=== PATIENT | female | born 1945 | race Caucasian/White ===

== ENCOUNTER 2022-07-21 21:12 | Inpatient (IN) | payer MEDICARE, MEDICAID, SELFPAY ==
--- NOTE | 2022-07-21 08:17 | ECG_ITS ---
APPROVED REPORT Exam: Resting ECG HR:115 bpm ECG Measurements Heart Rate 115 AXES QRSd 78 QRS -22 QT 298 T 75 QTc 366 Conclusion ATRIAL FIBRILLATION WITH RAPID VENTRICULAR RESPONSE LOW QRS VOLTAGE IN PRECORDIAL LEADS [QRS DEFLECTION < 1.0 mV IN CHEST LEADS] POSSIBLE ANTERIOR MYOCARDIAL INFARCTION , PROBABLY OLD [30 ms Q WAVE IN V3/V4, OR R < 0.2 mV IN V4] ABNORMAL RHYTHM ECG UNCONFIRMED REPORT Electronically signed by : Carlos Landin MD 07/23/2022 21:18:01
[2022-07-21 21:15] VITALS: BMI 27.9
--- NOTE | 2022-07-21 21:43 | XR_ITS ---
PROCEDURE INFORMATION: Exam: XR Chest Exam date and time: 07/21/2022 9:45 PM Age: 76 years old Clinical indication: Shortness of breath; Additional info: Shortness of air, chest pain TECHNIQUE: Imaging protocol: Radiologic exam of the chest. Views: 1 view. COMPARISON: No relevant prior studies available. FINDINGS: Tubes, catheters and devices: Multiple surgical clips project over the right chest. Central line port catheter tip projects over the cavoatrial junction. Lungs: Chronic appearing interstitial lung markings. No acute airspace consolidation. Pleural spaces: Unremarkable. No pleural effusion. No pneumothorax. Heart/Mediastinum: Mild cardiac enlargement. Retrocardiac hiatal hernia. Vasculature: Atherosclerotic calcification of a mildly tortuous thoracic aorta. Bones/joints: Unremarkable. IMPRESSION: 1. Cardiomegaly. 2. Hiatal hernia. 3. No acute airspace process.
[2022-07-21 22:00] VITALS: BP 113/67; PULSE 112; RESP 38; TEMP 35.9; O2SAT 94
--- NOTE | 2022-07-21 22:11 | PC.NURSE ---
admitted pt to [id number] to bedside assessing pt and placing orders, started pt on amiodarone 0.5mg/min per order, admission being completed, labs being completed including covid swab, pt on 6LNC with oxygen sats 93-94% with labored breathing and tachypnea, pt is a DNR pt signed form and placed in chart, pt has skin tear right elbow placed gauze and microban on and pt has wound on right lower extremity present on arrival, permission to take picture obtained, picture taken, placed telfa pad and wrapped with kerlex
--- NOTE | 2022-07-21 22:21 | EXP.HP ---
History of Present Illness *Admission Date: 07/21/22 *Reason for visit:: Shortness of air, Chest tightness *History of present illness: Ms. Maty Manjarrez is a 76-year-old female with a reported history of Chronic Atrial Fibrillation on chronic anticoagulation and rate controlling medication, COPD on chronic home oxygen, Diabetes and CAD, post PCI. She presents from [facility] where she was [facility] due to worsening shortness of air and chest tightness over a 3-day time period. The patient was seen on presentation to our facility, she reports that she takes Sotalol and Cardizem for her Atrial Fibrillation, she reports that due to low blood pressure that it was held at the Prison. She reports feelings of heart palpitations, shortness of air and chest tightness over the next three day time period, that worsened so she was sent to the ER for evaluation. In the ER at the outside facility, EKG showed Atrial Fibrillation with rates in the 145-185 range. She was given Loading doses of Cardizem and Amiodarone. She was sent to our facility for Cardiology evaluation. Upon arrival at our facility heart rate was in the 100 range. She was continued on maintenace dose of Amiodarone and her DOAC was continued. She has significant bilateral lower extremity edema and a ulceration on the right lower extremity. The patient will be admitted with initial impression: Atrial Fibrillation with RVR and Chest pain. Cardiology will be consulted to see the patient. The plan of care was discussed with the patient on admission. She verbalized understanding and agreement with the plan of care. [facility] Medical History (Updated 07/22/22 @ 10:52 by Diana Douglas APRN) Acute systolic CHF (congestive heart failure), NYHA class 3 Angina pectoris Atrial fibrillation Breast cancer CAD (coronary artery disease) Cardiomyopathy COPD (chronic obstructive pulmonary disease) COPD (chronic obstructive pulmonary disease) Diabetes mellitus FH: cholecystectomy Hyperlipidemia Hypertension Shortness of Breath Surgical History H/O heart artery stent H/O right mastectomy History of cholecystectomy Family History Other Heart attack Stroke Social History Smoking Status: Former smoker alcohol intake: never current occupational status: retired Travel in the last 8 weeks: None adopted: No household members: none lives independently: Yes Review of Systems Review of Systems Review of systems:: pertinent systems reviewed and negative unless documented below Constitutional Constitutional: Reports fatigue and Reports lethargy Eyes Eyes: Reports system reviewed and no additional complaints, except as documented ENT Ears, Nose, Mouth, and Throat: Reports system reviewed and no additional complaints, except as documented *Cardiovascular Cardiovascular: Reports dyspnea, Reports dyspnea on exertion, Reports irregular heart rhythm and Reports palpitations *Respiratory Respiratory: Reports dyspnea and Reports dyspnea on exertion *Gastrointestinal Gastrointestinal: Reports system reviewed and no additional complaints, except as documented *Genitourinary Genitourinary: Reports system reviewed and no additional complaints, except as documented *Musculoskeletal Musculoskeletal: Reports system reviewed and no additional complaints, except as documented Integumentary/Breasts Skin/Breast: Reports skin swelling and Reports wounds *Neurologic Neurologic: Reports system reviewed and no additional complaints, except as documented Psychiatric Psychiatric: Reports system reviewed and no additional complaints, except as documented Endocrine Endocrine: Reports fatigue and Reports palpitations Allergic/Immunologic Allergic/Immunologic: Reports system reviewed and no additional complain
[2022-07-21 22:46] LABS: Coronavirus 19, PCR Not Detected (NotDetected); Influenza A, PCR Not Detected (NotDetected); Influenza B, PCR Not Detected (NotDetected)
--- NOTE | 2022-07-21 22:47 | PC.NURSE ---
pt states has taken all meds at outside facility that needs for the night; pt states has allergies to pcn's, 90% of pain medications (but doesn't know which ones), warfarin, and the pneumonia vaccine; notified ROSE Ocampo home meds need to be placed in computer and then can reconcile them and that pt has allergies listed above
[2022-07-21 22:48] LABS: Basophils % 0.2 % (0.1-2.0); Eosinophils % 0.1 % (0.1-12.0); Hematocrit 29.9 % (37.0-47.0); Hemoglobin 9.3 g/dL (12.2-16.2); Lymphocytes # 0.3 K/mm3 (0.7-4.5); Lymphocytes % 3.9 % (10-50); Mean Corpuscular HGB Conc 30.9 g/dL (31.8-35.4); Mean Corpuscular Hemoglobin 29.6 pg (27.0-31.2); Mean Corpuscular Volume 95.7 fl (81-99); Mean Platelet Volume 8.7 fl (7.4-10.4); Monocytes # 0.1 K/mm3 (0.1-1.0); Monocytes % 1.3 % (1.7-9.3); Neutrophils # 8.3 K/mm3 (1.8-7.8); Neutrophils % 94.4 % (37.0-80.0); Platelet Count 640 K/mm3 (142-424); Red Blood Count 3.13 M/mm3 (4.20-5.40); Red Cell Distribution Width 17.4 % (11.5-17.5); White Blood Count 8.8 K/mm3 (4.8-10.8)
[2022-07-21 22:56] LABS: MANUAL DIFFERENTIAL MANUAL DIFFERENTIAL (MANUAL DIFF)
--- NOTE | 2022-07-21 22:57 | PC.WOUNDNOTE ---
stasis ulcer right lower extremity present on arrival
[2022-07-21 23:08] LABS: Chloride 89 mmol/L (98-107)
[2022-07-21 23:09] LABS: Potassium 5.3 mmoL/L (3.5-5.1); Sodium 134 mmol/L (136-145)
[2022-07-21 23:10] VITALS: BP 111/49; PULSE 110; RESP 16; O2SAT 100
[2022-07-21 23:11] LABS: Alanine Aminotransferase 27 U/L (12-78); Aspartate Amino Transferase 53 U/L (14-36)
[2022-07-21 23:12] LABS: Albumin Level 3.4 g/dl (3.5-5.0); Albumin/Globulin Ratio 1.1 (1.1-1.8); Alkaline Phosphatase 117 U/L (38-126); Anion Gap 17.3 mEq/L (5-15); Bilirubin,Total 0.6 mg/dl (0.2-1.3); Calcium 9.3 mg/dl (8.4-10.2); Carbon Dioxide 33 mmol/L (22.0-30.0); Globulin 3.1 g/dL (1.3-3.2); Glucose 189 mg/dl (74-100); Total Protein,Serum 6.5 g/dl (6.3-8.2)
[2022-07-21 23:14] VITALS: O2SAT 93
[2022-07-21 23:16] LABS: Blood Urea Nitrogen 18 mg/dl (7-17)
[2022-07-21 23:17] LABS: Creatinine Clearance Estimated 55 mL/min (50-200); Estimated Glomerular Filt Rate 61 ml/min (>60); GFR (African American) 73 ML/MIN (>60); Lymphocytes % 5 % (10-50); Monocytes % 1 % (2-9); Neutrophils % 94 % (42-76); Total Cells Counted 100
[2022-07-21 23:19] VITALS: O2SAT 94
[2022-07-21 23:23] LABS: Basophilic Stippling 1+
[2022-07-21 23:24] LABS: Platelet Estimate Marked Increase
[2022-07-21 23:27] VITALS: O2SAT 100
[2022-07-21 23:32] LABS: Troponin I < 0.01 ng/ml (0.00-0.034)
[2022-07-21 23:33] LABS: NT Pro Brain Natriuretic Pep. 8620 pg/mL (0-450)
[2022-07-21 23:43] LABS: Thyroid Stimulating Hormone 0.76 uIU/mL (0.465-4.68)
[2022-07-22] VITALS (33 sets, daily range): BP systolic 98–119; BP diastolic 41–67; PULSE 60–132; RESP 15–33; TEMP 36.1–36.7; O2SAT 89–100; BMI 27.9
[2022-07-22 01:55] LABS: Troponin I < 0.01 ng/ml (0.00-0.034)
[2022-07-22 06:23] LABS: POC Glucose,Bedside 168 (70-110)
[2022-07-22 06:47] LABS: Chol/HDL Ratio 2.9 (1-3.5); Cholesterol 116 mg/dl (140-200); HDL Cholesterol 40 mg/dl (40-60); Triglycerides 113 mg/dl (30-150); VLDL Cholesterol 23 mg/dL (0-40)
[2022-07-22 06:58] LABS: Direct LDL Cholesterol 40.66 mg/dL (100-129)
--- NOTE | 2022-07-22 07:47 | HMH.PTWOUND ---
Rehab Inpt Wound Evaluation Rehab IP Wound Evaluation Start: 07/22/22 07:04 Freq: ONCE Status: Active Protocol: Document 07/22/22 07:42 MEEK (Rec: 07/22/22 07:47 MEEK [id number]) Rehab PT Wound Assessment Patient Status Premedicated Prior to Dressing Change No Subjective Subjective Pt reports pain only w/ pushing on my leg - pt A&O x 3 - able to follow commands - pt reports she lives alone and was I in PLOF. Pt has popped blister on RLE Wound Right Lower Medial Pascal Wound Type Blister Wound Length (cm) 4.0 Wound Width (cm) 3.0 Wound Depth (cm) 0.1 Wound Bed Appearance Beefy Red,Dusky Red Percentage Granulated (%) 100 Wound Margins Description Indistinct Edema Type Pitting Edema Degree 4+ Query Text:1+ Trace, Barely Detectable, Rebound 15-30 seconds 2+ Moderate, Slight Indentation, Rebound 10-20 seconds 3+ Deep, Deeper Indentation, Rebound > 30 seconds 4+ Very Deep, Rebound > 60 seconds Edema Appearance Weeping,Shiny,Puffy,Stretched Looking Surrounding Tissue Temperature Warm Wound Drainage Description Serous Drainage Amount Small Drainage Odor No Odor Dressing Status Soiled Wound Topical Solution/Irrigant Antibiotic Irrigant Primary Dressing Silver Dressing Comment opticell AG Wound Secondary Dressing Type Gauze Roll/Wrap,Adhering Gauze Roll Comment kerlix/coban Wound Debridement Amount of Tissue None Removed Dressing Change Patient Tolerance Tolerated Poorly Plan/Recommendation Comment No skilled wound therapy needs at this time - pt needs significant edema reduction w/ diuresis, elevation and compression but pt refused to elevate legs and tolerate compression. Nsg to follow pt and do wound dressing as needed. Eval Complexity Eval Charge Codes 28857 - Moderate Complexity G-codes PT Current Status Other PT/OT Status PT Current Status Modifier CM-At least 80% but less than 100% impaired, limited or restricted PT Goal Status
--- NOTE | 2022-07-22 09:29 | HMH.PHAINT1 ---
Pharmacy Intervention Comments: Medication reconciliation completed via external fill history and MAR from [facility]. -Nikki Vasquez, PharmD Candidate 2022
--- NOTE | 2022-07-22 09:47 | IR_ITS ---
APPROVED REPORT Patient Location: [facility] [employer] Professional: SUKI Jarvis RT (R) PROCEDURES Right heart catheterization Left heart catheterization Left ventriculogram Selective coronary angiogram Direct-current cardioversion INDICATION Biventricular congestive heart failure, Anasarca, Atrial fibrillation Informed consent was obtained prior to the procedure. COMPLICATIONS None Estimated Blood Loss: Less than 10 ML TECHNIQUE One percent lidocaine used to anesthetize the right anterior aspect of the wrist. The right radial artery was accessed via the Seldinger technique. A 6 Austrian sheath was placed in the right radial artery. 2.5 mg of verapamil, 800 mcg of nitroglycerin, 1mg Lidocaine and 5000 U Heparin were given through the arterial sheath. The papa catheter was also used to perform left heart catheterization, left ventriculogram and selective coronary angiogram. 1% lidocaine was used anesthetize the right groin the right femoral vein was accessed via the Salinger technique and a 7 Austrian sheath was placed in the right femoral vein. Mershon-Abdirahman catheter was used to perform right heart catheterization. At the end of the cardiac catheterization 50 J of synchronized electricity was applied successfully converting patient from atrial fibrillation into sinus rhythm. Patient tolerated the procedure well was transferred to the postop putting in stable condition for sheath removal ANGIOGRAPHIC RESULTS The left main artery Normal The left anterior descending artery Has a stent in the proximal segment which is widely patent with minimal in-stent restenosis and excellent proximal distal transitioning. The remaining LAD has mild 20% nonocclusive plaque The circumflex artery Is a large dominant vessel and has mid vessel 30 to 40% stenoses. The bifurcating first obtuse marginal artery gives rise to a 1.75 mm superior branch which has an ostial concentric 80 to 90% stenosis. The right coronary artery Is nondominant and has a proximal 40 to 50% stenosis and a less than 2 mm vessel The QUIROZ ventriculogram reveals Reduced ejection fraction 45% The left ventricular end-diastolic pressure 20 mmHg Right atrial pressure 20 mmHg Right ventricular pressure 40/20 mmHg Pulmonary occlusion pressure 20 mmHg Pulmonary pressure 40/20 mmHg Right atrial saturation 64% Pulmonary artery saturation 61% Aortic saturation 97% Hemoglobin 9.3 Cardiac output 3.6 L/min IMPRESSION Coronary disease as described above with medical management being most warranted with a coronary artery disease not explaining patient's biventricular heart failure Equalization of pressures with a prominent Y descent can suggestive of constrictive pericarditis Atrial fibrillation successfully converted into sinus rhythm PLAN 1. High resolution CAT scan of the chest with specific attention looking at pericardial thickness to evaluate for constrictive pericarditis 2. Pending the results of the CAT scan it is possible patient could rather be suffering from a restrictive cardiomyopathy. Recommend CMR if pericardial thickness is not identified 3. Medical management for coronary artery disease 4. It is possible patient may be experiencing biventricular heart failure all from diastolic dysfunction now with some degree of LV dysfunction. Recommend high-dose diuretics and continue to diurese until a significant increase in creatinine has occurred or until patient's anasarca is resolved 5. Continue with Eliquis for atrial fibrillation Electronically signed by : Dawson Fishman MD 07/22/2022 12:30:54
--- NOTE | 2022-07-22 10:27 | EXP.CARD.CON ---
History of Present Illness History of Present Illness Consult date: 07/22/22 Requesting physician: Chivo Cardona Consult reason: chest pain, atrial fibrillation and shortness of breath Chief complaint: chest pain and SOB History of present illness: This is a 76-year-old white female who presented to the emergency department at [facility] with a 3-day history of chest pain and shortness of breath. The patient has known chronic atrial fibrillation on Eliquis, coronary artery disease with stenting, COPD and diabetes mellitus. The patient resides at a care home and [facility]. She states that 3 days ago she started to have chest pain and shortness of breath. The patient reports that she does not feel well. She is really unable to describe her chest pain to me but she just keeps telling me that she feels like she cannot breathe. She states that she has to sit up in the bed and chair or she is unable to breathe. She denies any fever, chills, nausea, vomiting or diarrhea. She states that she has been having orthopnea with her shortness of breath. She states that she has significant bilateral lower extremity edema. Her lower extremities are weeping fluid and she does have an ulceration to her right lower extremity that is wrapped in a dressing. The patient states that she does not feel well. She is on oxygen via nasal cannula and has refused any masks or BiPAP for oxygenation. The patient has a known history of atrial fibrillation but when she got to the emergency department at [facility] she was found to be in atrial fibrillation with RVR. Her heart rate was in the 140s to 180s. She was given a loading dose of Cardizem and amiodarone and then she was transferred here to [facility] on an amiodarone drip. She remains on the amiodarone drip this morning and is tachycardic. She states that she can feel the palpitations and fluttering of her heart as well. During my examination she is unable to tell me who her assistant hvac mechanic is and when her last cardiology work-up was. She is alert and oriented x3. [facility] Medical History (Updated 07/22/22 @ 10:52 by Diana Douglas APRN) Acute systolic CHF (congestive heart failure), NYHA class 3 Angina pectoris Atrial fibrillation Breast cancer CAD (coronary artery disease) Cardiomyopathy COPD (chronic obstructive pulmonary disease) COPD (chronic obstructive pulmonary disease) Diabetes mellitus FH: cholecystectomy Hyperlipidemia Hypertension Shortness of Breath Surgical History H/O heart artery stent H/O right mastectomy History of cholecystectomy Family History Other Heart attack Stroke Social History Smoking Status: Former smoker alcohol intake: never current occupational status: retired Travel in the last 8 weeks: None adopted: No household members: none lives independently: Yes Review of Systems Review of Systems Review of systems:: pertinent systems reviewed and negative unless documented below Constitutional Constitutional: Reports system reviewed and no additional complaints, except as documented, Reports fatigue and Reports lethargy Eyes Eyes: Reports system reviewed and no additional complaints, except as documented ENT Ears, Nose, Mouth, and Throat: Reports system reviewed and no additional complaints, except as documented *Cardiovascular Cardiovascular: Reports system reviewed and no additional complaints, except as documented, Reports as per HPI, Reports chest pain, Reports chest pain at rest, Reports chest pain with activity, Reports dyspnea, Reports dyspnea on exertion, Reports irregular heart rhythm, Reports orthopnea, Reports palpitations and Reports rapid heart rate *Respiratory Respiratory: Reports system reviewed and no additional complaints, except as documented, Reports
--- NOTE | 2022-07-22 10:37 | PC.NURSE ---
Pt to production laborer @ 1390.
[2022-07-22 11:43] LABS: CATHL Arterial O2 SAT 61.5 % (90-100); CATHL Venous O2 SAT 64.2 % (75-80)
--- NOTE | 2022-07-22 12:16 | CT_ITS ---
FINAL REPORT CLINICAL HISTORY: constrictive pericarditis COMPARISON: June 2022 FINDINGS: Axial images were obtained from the lung apex to the mid abdomen by computed tomography. Coronal reformatted images were obtained. This study was performed with techniques to keep radiation doses as low as reasonably achievable, (ALARA). Individualized dose reduction techniques using automated exposure control or adjustment of mA and/or kV according to the patient's size were employed. A left anterior chest port terminates in the SVC. There is no axillary adenopathy. There is no hilar or mediastinal adenopathy. There is moderate vascular calcification in the aortic arch. Heart size is normal. There are small bilateral pleural effusions. Images through the upper abdomen demonstrate a benign-appearing cyst in the left kidney measuring 5.3 x 4.0 cm. The gallbladder is absent. There is irregular density within fat medial to the spleen seen on image 62 of series 2 that was noted on the prior exam and is of unclear etiology. The pericardium measures less than 2 mm and is not appear visually thickened. There is a 1.0 x 0.7 cm nodule in the posterior right upper lobe on image 22 of series 2. There is a 4 mm nodule in the anterior periphery of the right upper lobe on image 23 of series 2. There is bibasilar consolidation with overlying atelectasis. IMPRESSION: Bibasilar consolidation with overlying atelectasis and 2 right lung nodules as above. Irregular density within fat medial to the spleen of unclear etiology. Less than 2 mm pericardium does not appear thickened. Reviewed, Interpreted and Dictated by Frank Whitaker MD Transcribed by Jeffy Harkins Authenticated and [facility]
[2022-07-22 12:45] LABS: Microscopic, Urine URINE MICROSCOPIC (MICROSCOPIC)
[2022-07-22 12:56] LABS: Appearance,Urine CLEAR (Clear); Blood, Urine TRACE-I (Negative); Color,Urine YELLOW (Yellow); Glucose,Urine (UA) Negative (Negative); Ketones,Urine TRACE (Negative); Leukocyte Esterase,Urine TRACE (Negative); Nitrate,Urine Negative (Negative); Protein,Urine Negative (Negative); Specific Gravity, Urine 1.025 (1.005-1.030)
[2022-07-22 13:13] LABS: Bacteria,Urine Trace /lpf; Bilirubin,Urine 1+ (Negative)
--- NOTE | 2022-07-22 14:21 | CARE MANAGER ---
Patient is currently a patient at [facility] in [place] ([phone]) receiving rehab and is SNF status. They do anticipate being able to take her back when she is ready and asked for an update in the next day or 2. MURALI Yang
--- NOTE | 2022-07-22 14:55 | EXP.ACUTE.PN ---
Subjective *Date: 07/22/22 *Time: 18:34 Medical Exam Vital signs and Labs for Last 24 Hours: Vital Signs Temp Pulse Pulse Resp BP Pulse Ox 07/22/22 13:30 65 20 108/57 L 100 07/22/22 13:15 78 18 119/43 L 100 07/22/22 12:45 68 20 104/48 L 100 07/22/22 12:30 68 20 99/53 L 100 07/22/22 12:15 72 22 103/43 L 100 07/22/22 12:00 82 20 103/47 L 100 07/22/22 11:45 84 20 112/61 100 07/22/22 11:40 86 23 100/60 L 100 07/22/22 11:35 84 19 109/61 L 100 07/22/22 08:00 110 H 07/22/22 11:32 84 07/22/22 11:30 85 22 106/62 L 99 07/22/22 11:13 18 07/22/22 10:00 132 H 28 H 115/55 L 96 07/22/22 08:00 117 H 26 H 113/59 L 100 07/22/22 08:00 97.6 F 07/22/22 04:00 100 07/22/22 06:00 123 H 31 H 117/41 L 100 07/22/22 04:00 100 H 07/22/22 04:00 96.9 F L 07/22/22 04:00 104 H 23 108/55 L 100 07/22/22 02:00 113 H 15 98/50 L 100 07/22/22 00:00 108 H 07/22/22 00:00 121 H 07/22/22 00:00 105 H 33 H 109/45 L 100 07/22/22 00:47 97.9 F 07/21/22 23:19 94 L 07/21/22 23:10 110 H 16 111/49 L 100 07/21/22 23:27 100 07/21/22 23:14 93 L 07/21/22 22:00 96.6 F L 112 H 38 H 113/67 94 L Intake and Output 07/21/22 07/22/22 07/22/22 23:59 07:59 15:59 Output Total 0 / 0 Balance 0 / 0 Output: Output, Urine Amount 0 / 0 Other: Number of Unmeasured Voids 0 Weight 73.936 kg 74.2 kg Patient Weight 07/22/22 23:59 Weight 74.2 kg Laboratory Results - last 24 hr 07/21/22 22:14: SARS-CoV-2 (PCR) Not detected, Influenza A Untype (PCR) Not detected, Influenza Type B (PCR) Not detected 07/21/22 22:29: WBC 8.8, RBC 3.13 L, Hgb 9.3 L, Hct 29.9 L, MCV 95.7, MCH 29.6, MCHC 30.9 L, RDW 17.4, Plt Count 640 H, MPV 8.7, Neut % (Auto) 94.4 H, Lymph % (Auto) 3.9 L, Hayes % (Auto) 1.3 L, Eos % (Auto) 0.1, Baso % (Auto) 0.2, Neut # (Auto) 8.3 H, Lymph # (Auto) 0.3 L, Hayes # (Auto) 0.1, Eos # (Auto) 0.0, Baso # (Auto) 0.0, Total Counted 100, Neutrophils % (Manual) 94 H, Lymphocytes % (Manual) 5 L, Monocytes % (Manual) 1 L, Platelet Estimate Marked increase, Basophilic Stippling 1+ 07/21/22 22:29: Sodium 134 L, Potassium 5.3 H, Chloride 89 L, Carbon Dioxide 33 H, Anion Gap 17.3 H, BUN 18 H, Creatinine 0.90, Estimated Creat Clear 55, Estimated GFR 61, Est GFR ( Amer) 73, Glucose 189 H, Calcium 9.3, Total Bilirubin 0.6, AST 53 H, ALT 27, Alkaline Phosphatase 117, Troponin I < 0.01, Total Protein 6.5, Albumin 3.4 L, Globulin 3.1, Albumin/Globulin Ratio 1.1, TSH 0.76 07/21/22 22:29: NT-Pro-B Natriuret Pep 8620 H 07/22/22 01:25: Troponin I < 0.01 07/22/22 05:46: Triglycerides 113, Cholesterol 116 L, LDL Cholesterol Direct 40.66 L, VLDL Cholesterol 23, HDL Cholesterol 40, Cholesterol/HDL Ratio 2.9 07/22/22 06:14: POC Glucose 168 H 07/22/22 11:15: ABG O2 Sat (Measured) 61.5 L, POC VBG O2 Sat (Betsy) 64.2 L 07/22/22 11:52: Urine Color Yellow, Urine Appearance Clear, Urine pH 6.0, Ur Specific [place] 1.025, Urine Protein Negative, Urine Glucose (UA) Negative, Urine Ketones Trace, Urine Blood Trace-i, Urine Nitrate Negative, Urine Bilirubin 1+ A, Urine Urobilinogen 1.0, Ur Leukocyte Esterase Trace, Urine RBC 5-10, Urine WBC 10-20, Ur Squamous Epith Cells None, Urine Bacteria Trace I & O for Labs for Last 24 Hours: Intake & Output 07/19/22 07/20/22 07/21/22 07/22/22 23:59 23:59 23:59 23:59 Output Total 0 / 0 Balance 0 / 0 Weight 73.936 kg 74.2 kg Constitutional: Present mild distress, chronically ill appearing and agitated Head: Present atraumatic and normocephalic ENT: Present normal exam and mucous membranes moist Neck: Present normal inspection Comment:: bandage over right IJ at site of Right heart cath, CDI Respiratory: Present accessory muscle use, wheezes, crackles and diminished air movement; Absent rhonchi or stridor Cardiac: Present Reg Rate an
[2022-07-22 16:26] LABS: POC Glucose,Bedside 163 (70-110)
[2022-07-22 16:26] LABS: POC Glucose,Bedside 179 (70-110)
--- NOTE | 2022-07-22 18:21 | PC.NURSE ---
Dr. Cardona here this afternoon to round on pt and updated on pt's condition. VSS at this time. Pt placed on simple mask @ 4 L NC currently and sats 98%. Light cath in place and draining scant yellow urine at this time. Ami gtt off at 1630. Dsg in place to r radial cath site, r jugular and r groin. Pt is a/o x 4. Pt is very weak and states help, and then just says breathe . Pt's rr are labored. Pt has been drowsy/sedated since returning from parking lot laborer. Does respond verbally when spoken to. Have notified RT for xopanex nebs ordered per Dr. Cardona.
[2022-07-22 19:16] LABS: Chloride 93 mmol/L (98-107); Sodium 135 mmol/L (136-145)
[2022-07-22 19:19] LABS: Blood Urea Nitrogen 25 mg/dl (7-17); Creatinine Clearance Estimated 50 mL/min (50-200); Estimated Glomerular Filt Rate 48 ml/min (>60); GFR (African American) 58 ML/MIN (>60)
[2022-07-22 19:20] LABS: Anion Gap 18.1 mEq/L (5-15); Carbon Dioxide 31 mmol/L (22.0-30.0); Glucose 144 mg/dl (74-100)
--- NOTE | 2022-07-22 20:09 | PC.WOUNDNOTE ---
1x1 stage 2 buttock r side
[2022-07-22 20:16] LABS: Potassium 7.1 mmoL/L (3.5-5.1)
--- NOTE | 2022-07-22 21:16 | ECG_ITS ---
APPROVED REPORT Exam: Resting ECG HR:85 bpm ECG Measurements Heart Rate 85 AXES IL 199 P 92 QRSd 96 QRS -6 QT 357 T 50 QTc 399 Conclusion SINUS RHYTHM LOW QRS VOLTAGE IN PRECORDIAL LEADS [QRS DEFLECTION < 1.0 mV IN CHEST LEADS] INCOMPLETE RIGHT BUNDLE BRANCH BLOCK [90+ ms QRS DURATION, TERMINAL R IN V1/V2, 40+ ms S IN I/aVL/V4/V5/V6] POSSIBLE ANTERIOR MYOCARDIAL INFARCTION , PROBABLY OLD [30 ms Q WAVE IN V3/V4, OR R < 0.2 mV IN V4] BORDERLINE ECG UNCONFIRMED REPORT Electronically signed by : Carlos Landin MD 07/23/2022 21:16:05
[2022-07-22 22:04] LABS: POC Glucose,Bedside 165 (70-110)
[2022-07-22 23:12] LABS: POC Glucose,Bedside 112 (70-110)
[2022-07-23] VITALS (22 sets, daily range): BP systolic 90–126; BP diastolic 39–54; PULSE 70–95; RESP 16–20; TEMP 36.4–37; O2SAT 90–100; BMI 28.9
--- NOTE | 2022-07-23 00:15 | PC.NURSE ---
Orders Heparin and Lasix clarified by Damaris MARTIN.
[2022-07-23 01:14] LABS: Chloride 91 mmol/L (98-107); Potassium 5.9 mmoL/L (3.5-5.1); Sodium 134 mmol/L (136-145)
[2022-07-23 01:17] LABS: Anion Gap 13.9 mEq/L (5-15); Blood Urea Nitrogen 25 mg/dl (7-17); Carbon Dioxide 35 mmol/L (22.0-30.0); Creatinine Clearance Estimated 42 mL/min (50-200); Estimated Glomerular Filt Rate 40 ml/min (>60); GFR (African American) 48 ML/MIN (>60)
[2022-07-23 01:18] LABS: Calcium 8.7 mg/dl (8.4-10.2); Glucose 108 mg/dl (74-100)
[2022-07-23 01:29] LABS: Chloride 89 mmol/L (98-107); Potassium 5.6 mmoL/L (3.5-5.1); Sodium 133 mmol/L (136-145)
[2022-07-23 01:32] LABS: Anion Gap 11.6 mEq/L (5-15); Blood Urea Nitrogen 24 mg/dl (7-17); Calcium 8.6 mg/dl (8.4-10.2); Carbon Dioxide 38 mmol/L (22.0-30.0); Creatinine Clearance Estimated 42 mL/min (50-200); Estimated Glomerular Filt Rate 40 ml/min (>60); GFR (African American) 48 ML/MIN (>60); Glucose 116 mg/dl (74-100)
--- NOTE | 2022-07-23 04:58 | PC.NURSE ---
Pt responds with moaning or states help occasionally. When asked if she feels any better, pt states, No . BP is soft this AM. Pt has remained on NRB or venti to keep O2 sats above 90%. She is currently on 50% venti. Lungs have coarse crackles in RUL. Lasix administered this shift. Pt has only had 100 ml total urine output. D5W is currently infusing @ 50 ml/hr. Medications and orders verified with Damaris MARTIN and [facility]. Crirical labs reported to Damaris MARTIN this shift.
[2022-07-23 05:21] LABS: POC Glucose,Bedside 164 (70-110)
[2022-07-23 06:31] LABS: Alanine Aminotransferase 306 U/L (12-78); Albumin Level 3.1 g/dl (3.5-5.0); Albumin/Globulin Ratio 1.1 (1.1-1.8); Alkaline Phosphatase 104 U/L (38-126); Anion Gap 14.6 mEq/L (5-15); Bilirubin,Total 0.7 mg/dl (0.2-1.3); Blood Urea Nitrogen 29 mg/dl (7-17); Calcium 8.7 mg/dl (8.4-10.2); Carbon Dioxide 34 mmol/L (22.0-30.0); Chloride 90 mmol/L (98-107); Creatinine Clearance Estimated 38 mL/min (50-200); Estimated Glomerular Filt Rate 34 ml/min (>60); GFR (African American) 41 ML/MIN (>60); Globulin 2.9 g/dL (1.3-3.2); Glucose 153 mg/dl (74-100); Magnesium 1.3 mg/dl (1.6-2.3); Sodium 132 mmol/L (136-145)
[2022-07-23 06:35] LABS: Basophils % 0.3 % (0.1-2.0); Eosinophils % 0.1 % (0.1-12.0); Hemoglobin 8.7 g/dL (12.2-16.2); Lymphocytes # 0.4 K/mm3 (0.7-4.5); Lymphocytes % 3.5 % (10-50); Mean Corpuscular HGB Conc 29.1 g/dL (31.8-35.4); Mean Corpuscular Hemoglobin 28.9 pg (27.0-31.2); Mean Corpuscular Volume 99.5 fl (81-99); Mean Platelet Volume 9.3 fl (7.4-10.4); Monocytes # 0.5 K/mm3 (0.1-1.0); Monocytes % 4.6 % (1.7-9.3); Neutrophils % 91.6 % (37.0-80.0); Platelet Count 507 K/mm3 (142-424); Red Blood Count 3.02 M/mm3 (4.20-5.40); Red Cell Distribution Width 18.1 % (11.5-17.5); White Blood Count 10.9 K/mm3 (4.8-10.8)
[2022-07-23 06:39] LABS: MANUAL DIFFERENTIAL MANUAL DIFFERENTIAL (MANUAL DIFF)
[2022-07-23 07:05] LABS: Aspartate Amino Transferase 791 U/L (14-36)
[2022-07-23 07:10] LABS: Potassium 6.6 mmoL/L (3.5-5.1)
--- NOTE | 2022-07-23 07:29 | PC.NURSE ---
critical lab value potassium given to MD Cardona.
[2022-07-23 08:08] LABS: Lymphocytes % 5 % (10-50); Monocytes % 6 % (2-9); Neutrophils % 88 % (42-76); Total Cells Counted 100
[2022-07-23 08:09] LABS: Platelet Estimate Moderate Increase; RBC Morphology Normal
[2022-07-23 08:16] LABS: Hemoglobin A1C 6.4 % (4.0-6.0)
--- NOTE | 2022-07-23 10:34 | EXP.CARD.PN ---
Subjective Subjective Date: 07/23/22 Time: 08:30 Principal diagnosis: chf Interval history: This is a 76-year-old white female who [facility] with a 3-day history of chest pain and shortness of breath. The patient was found to have an acute exacerbation of diastolic congestive heart failure and she was admitted to the hospital at [facility]. The patient was also found to be in atrial fibrillation with RVR. She was initially loaded with Cardizem and amiodarone and then continued on an amiodarone drip. She was cardioverted back to sinus rhythm yesterday and her amiodarone drip has been stopped. 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 She underwent a CT scan yesterday which showed that her pericardial thickness was normal. She did get IV diuretics overnight. This morning she is still complaining of shortness of breath. She states that it is a little bit better than yesterday but she just does not feel well. She states that she is very tired and lethargic. She denies any chest pain or pressure. She states that she has chronic lower extremity edema. Her edema does appear to be improved somewhat from yesterday. She states that she does not feel good. She denies any fever, chills, nausea, vomiting or diarrhea. She states that her shortness of breath is associated with orthopnea. Exam Data for Last 24 hours Vital signs and Labs for Last 24 Hours: Temp Pulse Resp BP Pulse Ox FiO2 97.6 F 83 18 99/51 L 97 50 07/23/22 08:00 07/23/22 10:18 07/23/22 10:00 07/23/22 10:00 07/23/22 10:00 07/23/22 10:00 Laboratory Results - last 24 hr 07/22/22 11:15: ABG O2 Sat (Measured) 61.5 L, POC VBG O2 Sat (Betsy) 64.2 L 07/22/22 11:52: Urine Color Yellow, Urine Appearance Clear, Urine pH 6.0, Ur Specific [place] 1.025, Urine Protein Negative, Urine Glucose (UA) Negative, Urine Ketones Trace, Urine Blood Trace-i, Urine Nitrate Negative, Urine Bilirubin 1+ A, Urine Urobilinogen 1.0, Ur Leukocyte Esterase Trace, Urine RBC 5-10, Urine WBC 10-20, Ur Squamous Epith Cells None, Urine Bacteria Trace 07/22/22 12:07: POC Glucose 163 H 07/22/22 15:43: POC Glucose 179 H 07/22/22 18:45: Sodium 135 L, Potassium 7.1 H* D, Chloride 93 L, Carbon Dioxide 31 H, Anion Gap 18.1 H, BUN 25 H D, Creatinine 1.10 H D, Estimated Creat Clear 50, Estimated GFR 48 L, Est GFR ( Amer) 58 L D, Glucose 144 H D, Calcium 9.0 07/22/22 21:09: POC Glucose 165 H 07/22/22 23:06: POC Glucose 112 H 07/23/22 00:25: Sodium 134 L, Potassium 5.9 H, Chloride 91 L, Carbon Dioxide 35 H, Anion Gap 13.9, BUN 25 H, Creatinine 1.30 H, Estimated Creat Clear 42, Estimated GFR 40 L, Est GFR ( Amer) 48 L, Glucose 108 H D, Calcium 8.7 07/23/22 01:15: Sodium 133 L, Potassium 5.6 H, Chloride 89 L, Carbon Dioxide 38 H, Anion Gap 11.6, BUN 24 H, Creatinine 1.30 H, Estimated Creat Clear 42, Estimated GFR 40 L, Est GFR ( Amer) 48 L, Glucose 116 H, Calcium 8.6 07/23/22 05:09: POC Glucose 164 H 07/23/22 05:50: WBC 10.9 H, RBC 3.02 L, Hgb 8.7 L, Hct 30.0 L, MCV 99.5 H, MCH 28.9, MCHC 29.1 L, RDW 18.1 H, Plt Count 507 H, MPV 9.3, Neut % (Auto) 91.6 H, Lymph % (Auto) 3.5 L, Josephine % (Auto) 4.6, Eos % (Auto) 0.1, Baso % (Auto) 0.3, Neut # (Auto) 10.0 H, Lymph # (Auto) 0.4 L, Josephine # (Auto) 0.5, Eos # (Auto) 0.0, Baso # (Auto) 0.0, Total Counted 100, Neutrophils % (Manual) 88 H, Lymphocytes % (Manual) 5 L, Monocytes % (Manual) 6, Metamyelocytes % 1.0, Platelet Estimate Moderate increase, RBC Morphology Normal 07/23/22 05:50: Sodium 132 L, Potassium 6.6 H*, Chloride 90 L, Carbon Dioxide 34 H, Anion Gap 14.6, BUN 29 H, Creatinine 1.50 H, Estimated Creat Clear 38, Estimated GFR 34 L, Est GFR ( Amer) 41 L, Glucose 153 H D, Calciu
[2022-07-23 12:29] LABS: POC Glucose,Bedside 147 (70-110)
--- NOTE | 2022-07-23 13:51 | EXP.ACUTE.PN ---
Subjective *Date: 07/23/22 *Time: 13:51 Interval history: Patient appears quite fatigued this morning. On 50% Ventimask on rounds. Poor urine output overnight. Noted to have improvement in edema however. On morning labs, her creatinine is elevated along with hyperkalemia noted. Treated once medically overnight for hyperkalemia. Receiving second dose of dextrose and insulin this morning. Patient denies any chest pain, nausea, vomiting. Appears in mild respiratory distress. Continues to decline BiPAP placement. Blood pressure soft but acceptable, MAP greater than 65 Medical Exam Vital signs and Labs for Last 24 Hours: Vital Signs Temp Pulse Pulse Pulse Resp BP Pulse Ox 07/23/22 12:00 88 16 98/49 L 97 07/23/22 13:28 82 07/23/22 13:28 84 07/23/22 11:35 98.2 F 07/23/22 10:18 83 07/23/22 10:18 84 07/23/22 10:00 84 18 99/51 L 97 07/23/22 08:00 99 07/23/22 08:00 92 H 20 106/46 L 98 07/23/22 08:00 97.6 F 07/23/22 04:00 80 07/23/22 05:50 80 07/23/22 05:50 84 07/23/22 05:50 90 L 07/23/22 06:00 84 20 90/43 L 96 07/23/22 04:30 79 16 95/51 L 99 07/23/22 04:00 98.6 F 78 16 92/44 L 99 07/23/22 02:00 81 17 126/43 L 99 07/23/22 00:00 77 20 101/54 L 99 07/22/22 22:00 86 16 110/50 L 89 L 07/22/22 20:00 82 18 110/54 L 99 07/23/22 00:00 70 07/22/22 20:00 80 07/22/22 20:00 98 07/23/22 00:00 98.5 F 07/22/22 20:28 95 07/22/22 19:05 84 07/22/22 19:05 84 07/22/22 19:05 97 07/22/22 19:57 98.1 F 07/22/22 18:45 81 24 110/52 L 07/22/22 16:30 100 07/22/22 18:00 79 24 111/57 L 100 07/22/22 17:45 97.8 F 78 26 H 118/67 100 07/22/22 16:00 60 07/22/22 16:45 70 24 109/55 L 100 07/22/22 15:45 65 24 98/44 L 100 07/22/22 14:45 64 20 103/45 L 97 07/22/22 14:15 66 18 113/55 L 100 FiO2 07/23/22 12:00 50 07/23/22 13:28 07/23/22 13:28 07/23/22 11:35 07/23/22 10:18 07/23/22 10:18 07/23/22 10:00 50 07/23/22 08:00 50 07/23/22 08:00 50 07/23/22 08:00 07/23/22 04:00 07/23/22 05:50 07/23/22 05:50 07/23/22 05:50 50 07/23/22 06:00 07/23/22 04:30 07/23/22 04:00 07/23/22 02:00 07/23/22 00:00 07/22/22 22:00 07/22/22 20:00 07/23/22 00:00 07/22/22 20:00 07/22/22 20:00 07/23/22 00:00 07/22/22 20:28 07/22/22 19:05 07/22/22 19:05 07/22/22 19:05 07/22/22 19:57 07/22/22 18:45 07/22/22 16:30 07/22/22 18:00 07/22/22 17:45 07/22/22 16:00 07/22/22 16:45 07/22/22 15:45 07/22/22 14:45 07/22/22 14:15 Intake and Output 07/22/22 07/23/22 07/23/22 23:59 07:59 15:59 Intake Total 343 / 343 0 / 343 Output Total 400 / 400 100 / 100 0 / 100 Balance -400 / -400 243 / 243 0 / 243 Intake: Intake, Oral Amount 0 / 0 Intake, Total IV Amount 343 / 343 Dextrose 5 % in Water 1,000 ml 343 / 343 @ 50 mls/hr IV .Q20H [facility] Rx#: [id number] Output: Output, Urine Amount 0 / 0 0 / 0 Output, Urine Amount (Catheter) 400 / 400 100 / 100 Light 400 / 400 100 / 100 Other: Number of Unmeasured Voids 0 0 0 Weight 76.856 kg 76.85 kg Patient Weight 07/23/22 23:59 Weight 76.85 kg Laboratory Results - last 24 hr 07/22/22 12:07: POC Glucose 163 H 07/22/22 15:43: POC Glucose 179 H 07/22/22 18:45: Sodium 135 L, Potassium 7.1 H* D, Chloride 93 L, Carbon Dioxide 31 H, Anion Gap 18.1 H, BUN 25 H D, Creatinine 1.10 H D, Estimated Creat Clear 50, Estimated GFR 48 L, Est GFR ( Amer) 58 L D, Glucose 144 H D, Calcium 9.0 07/22/22 21:09: POC Glucose 165 H 07/22/22 23:06: POC Glucose 112 H 07/23/22 00:25: Sodium 134 L, Potassium 5.9 H, Chloride 91 L, Carbon Dioxide 35 H, Anion Gap 13.9, BUN 25 H, Creatinine 1.30 H, Estimated Creat Clear 42, Estimate
[2022-07-23 15:33] LABS: Chloride 94 mmol/L (98-107); Sodium 135 mmol/L (136-145)
[2022-07-23 15:36] LABS: Blood Urea Nitrogen 30 mg/dl (7-17); Creatinine Clearance Estimated 38 mL/min (50-200); Estimated Glomerular Filt Rate 34 ml/min (>60); GFR (African American) 41 ML/MIN (>60)
[2022-07-23 15:37] LABS: Anion Gap 16.6 mEq/L (5-15); Calcium 8.7 mg/dl (8.4-10.2); Carbon Dioxide 31 mmol/L (22.0-30.0); Glucose 112 mg/dl (74-100)
[2022-07-23 15:39] LABS: Potassium 6.6 mmoL/L (3.5-5.1)
--- NOTE | 2022-07-23 17:58 | PC.NURSE ---
Patient resting in bed with eyes closed, remains on 50% venti mask, lung sounds diminished t/o with fine crackles, 3+ pitting edema noted to bl extremities, alert to person only, minimal urine output this shift, has been turned q2h, call light in reach with bed in lowest position.
[2022-07-23 21:05] LABS: POC Glucose,Bedside 125 (70-110)
[2022-07-23 23:09] LABS: Chloride 91 mmol/L (98-107); Potassium 5.3 mmoL/L (3.5-5.1); Sodium 132 mmol/L (136-145)
[2022-07-23 23:12] LABS: Anion Gap 12.3 mEq/L (5-15); Blood Urea Nitrogen 29 mg/dl (7-17); Carbon Dioxide 34 mmol/L (22.0-30.0); Creatinine Clearance Estimated 36 mL/min (50-200); Estimated Glomerular Filt Rate 31 ml/min (>60); GFR (African American) 38 ML/MIN (>60)
[2022-07-23 23:13] LABS: Calcium 8.2 mg/dl (8.4-10.2); Glucose 111 mg/dl (74-100)
[2022-07-24] VITALS (18 sets, daily range): BP systolic 90–128; BP diastolic 34–66; PULSE 90–142; RESP 16–33; TEMP 35.9–37.1; O2SAT 90–100; BMI 28.8
--- NOTE | 2022-07-24 04:41 | PC.NURSE ---
Pt is more alert. Has been communicating more with staff answering and asking questions. C/o generalized discomfort. Medicated per mar. Has remained on venti mask this shift with a few desats from pt removing mask. . Pt educated on importance of leaving mask on. Crackles noted to lung sánchez. 4+ edema to ble and 3+ to bue. F/C draining to bedside with dark red/brown urine. More blood noted to urine this AM. Pt has had a total of 200 ml this shift. No BM. BP remains soft. Other VSS. Pt turned and repositioned. Oral care provided. Call light at bedside.
[2022-07-24 05:31] LABS: POC Glucose,Bedside 118 (70-110)
[2022-07-24 06:21] LABS: Basophils # 0.1 K/mm3 (0-0.2); Eosinophils # 0.2 K/mm3 (0.0-0.4); Eosinophils % 1.8 % (0.1-12.0); Hematocrit 24.6 % (37.0-47.0); Hemoglobin 7.9 g/dL (12.2-16.2); Lymphocytes # 0.4 K/mm3 (0.7-4.5); Lymphocytes % 4.7 % (10-50); Mean Corpuscular HGB Conc 31.9 g/dL (31.8-35.4); Mean Corpuscular Hemoglobin 29.7 pg (27.0-31.2); Mean Corpuscular Volume 93.1 fl (81-99); Mean Platelet Volume 11.4 fl (7.4-10.4); Monocytes # 0.4 K/mm3 (0.1-1.0); Monocytes % 4.3 % (1.7-9.3); Neutrophils # 8.5 K/mm3 (1.8-7.8); Neutrophils % 89.2 % (37.0-80.0); Platelet Count 429 K/mm3 (142-424); Red Blood Count 2.65 M/mm3 (4.20-5.40); Red Cell Distribution Width 16.9 % (11.5-17.5); White Blood Count 9.6 K/mm3 (4.8-10.8)
[2022-07-24 06:24] LABS: Alanine Aminotransferase 218 U/L (12-78); Albumin Level 2.8 g/dl (3.5-5.0); Albumin/Globulin Ratio 1.1 (1.1-1.8); Alkaline Phosphatase 104 U/L (38-126); Anion Gap 16.6 mEq/L (5-15); Aspartate Amino Transferase 287 U/L (14-36); Bilirubin,Total 0.8 mg/dl (0.2-1.3); Blood Urea Nitrogen 38 mg/dl (7-17); Calcium 8.3 mg/dl (8.4-10.2); Carbon Dioxide 30 mmol/L (22.0-30.0); Chloride 94 mmol/L (98-107); Creatinine Clearance Estimated 33 mL/min (50-200); Estimated Glomerular Filt Rate 29 ml/min (>60); GFR (African American) 35 ML/MIN (>60); Globulin 2.5 g/dL (1.3-3.2); Glucose 99 mg/dl (74-100); Magnesium 1.9 mg/dl (1.6-2.3); Sodium 134 mmol/L (136-145); Total Protein,Serum 5.3 g/dl (6.3-8.2)
[2022-07-24 06:46] LABS: MANUAL DIFFERENTIAL MANUAL DIFFERENTIAL (MANUAL DIFF)
[2022-07-24 07:32] LABS: Potassium 6.6 mmoL/L (3.5-5.1)
--- NOTE | 2022-07-24 07:43 | PC.NURSE ---
0731 critical lab value received. K+ 6.6, result repeated back and verified, name and read to lab staff. 0735 critical lab value reported to Dr Cardona. no new orders at this time.
[2022-07-24 09:11] LABS: Lactate Dehydrogenase 568 U/L (313-618)
--- NOTE | 2022-07-24 09:22 | EXP.CARD.PN ---
Subjective Subjective Date: 07/24/22 Time: 08:30 Principal diagnosis: chf, hyperkalemia Interval history: This is a 76-year-old white female who presented to the hospital with chest pain and shortness of breath. The patient underwent right and left cardiac catheterization. 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 The patient also had equalization of pressures with a prominent Y descent suggestive of constrictive pericarditis. 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 The patient did get IV diuretics but this was stopped yesterday secondary to an increase in her renal function and an increase in her potassium. She also had significantly elevated liver enzymes yesterday which may have been a little hepatitis from her amiodarone infusion. This morning she only states that she is cold. She does not answer any other questions in my review of system. Her vital signs are stable this morning and she appears to be in no distress. Exam Data for Last 24 hours Vital signs and Labs for Last 24 Hours: Temp Pulse Resp BP Pulse Ox FiO2 97.7 F 90 21 102/63 L 94 L 12 07/24/22 04:00 07/24/22 06:00 07/24/22 06:00 07/24/22 06:00 07/24/22 06:00 07/24/22 06:00 Laboratory Results - last 24 hr 07/23/22 12:22: POC Glucose 147 H 07/23/22 14:49: Sodium 135 L, Potassium 6.6 H*, Chloride 94 L, Carbon Dioxide 31 H, Anion Gap 16.6 H, BUN 30 H, Creatinine 1.50 H, Estimated Creat Clear 38, Estimated GFR 34 L, Est GFR ( Amer) 41 L, Glucose 112 H D, Calcium 8.7 07/23/22 20:14: POC Glucose 125 H 07/23/22 22:57: Sodium 132 L, Potassium 5.3 H, Chloride 91 L, Carbon Dioxide 34 H, Anion Gap 12.3, BUN 29 H, Creatinine 1.60 H, Estimated Creat Clear 36, Estimated GFR 31 L, Est GFR ( Amer) 38 L, Glucose 111 H, Calcium 8.2 L 07/24/22 05:12: POC Glucose 118 H 07/24/22 05:30: WBC 9.6, RBC 2.65 L, Hgb 7.9 L, Hct 24.6 L, MCV 93.1, MCH 29.7, MCHC 31.9, RDW 16.9, Plt Count 429 H, MPV 11.4 H, Neut % (Auto) 89.2 H, Lymph % (Auto) 4.7 L, [place] % (Auto) 4.3, Eos % (Auto) 1.8, Baso % (Auto) 1.0, Neut # (Auto) 8.5 H, Lymph # (Auto) 0.4 L, [place] # (Auto) 0.4, Eos # (Auto) 0.2, Baso # (Auto) 0.1 07/24/22 05:30: Sodium 134 L, Potassium 6.6 H* D, Chloride 94 L, Carbon Dioxide 30, Anion Gap 16.6 H, BUN 38 H D, Creatinine 1.70 H, Estimated Creat Clear 33, Estimated GFR 29 L, Est GFR ( Amer) 35 L, Glucose 99, Calcium 8.3 L, Magnesium 1.9 D, Total Bilirubin 0.8, AST 287 H D, ALT 218 H D, Alkaline Phosphatase 104, Total Protein 5.3 L, Albumin 2.8 L, Globulin 2.5, Albumin/Globulin Ratio 1.1 07/24/22 07:03: Lactate Dehydrogenase 568 I & O for Last 24 hours: Intake & Output 07/21/22 07/22/22 07/23/22 07/24/22 23:59 23:59 23:59 23:59 Intake Total 1820 / 1880 60 / 60 Output Total 400 / 400 300 / 300 125 / 125 Balance -400 / -400 1520 / 1580 -65 / -65 Weight 163 lb 163 lb 9.328 oz 169 lb 6.804 oz 168 lb 11.68 oz Microbiology Reports for the Last 24 Hours: Microbiology 07/22/22 11:52 Urine,Catheterized Urine Culture - Preliminary NO GROWTH AFTER 24 HOURS Narrative: Telemetry strip is sinus rhythm. Constitutional Constitutional: no acute distress, average body habitus and chronically ill appearing *Routine HEENT Exam Head: Present normocephalic and atraumatic ENT: Present mucous membranes moist *Routine Neck Exam Neck: Present supple, full ROM and normal carotid upstroke; Absent JVD, carotid bruit or lymphadenopathy *Routine Respiratory Exam Respiratory: Present CTA bilaterally, normal respiratory effort, able to speak in complete sentences and symmetric chest movement *Routine Cardiovascular Exam Cardiovascular: Present RRR, Normal S1 and Normal S2; Absent murmur or gallop *Routine Abdominal Exam Abdominal: Present soft and normoactive bowel sounds;
[2022-07-24 09:48] LABS: Reticulocyte % (Auto) 4.5 % (0.9-3.2)
[2022-07-24 11:24] LABS: Lymphocytes % 4 % (10-50); Monocytes % 5 % (2-9); Neutrophils % 91 % (42-76); Nucleated Red Blood Cells 1; Total Cells Counted 100
[2022-07-24 11:45] LABS: Hypochromasia 1+; Platelet Estimate Slight Increase
--- NOTE | 2022-07-24 11:52 | PC.NURSE ---
Pt gray catheter was irrigated with sterile water r/t pt consistently saying she needed to go to the bathroom. pt was unable to be redirected, no clots were noted. no further orders from Dr Cardona at this time
[2022-07-24 12:44] LABS: POC Glucose,Bedside 104 (70-110)
--- NOTE | 2022-07-24 15:00 | DIET.NUTRFU ---
Patient continues to refuse meals. When spoke to nursing patient is now alert enough to tell them no when offered food and beverages. Will continue to offer. Will start sending Glucerna for staff to offer. Patient electrolytes still imbalance. Hyperkelmia, elevated Cr and elevated liver enzymes. Received small dose of dextrose/insulin to tx the hyperkalmia both yesterday and today. NaCl in place for hydration. Lasix on 07/22, wt is up from admit (73kg) to 76kg, cardio is recommending diuretic tx again when medically feasible. Urine out is low at only 300ml yesterday and 400ml noted 07/22. Patient at this time has a poor prognosis with multiple tx in place.
[2022-07-24 15:01] LABS: Anion Gap 13.7 mEq/L (5-15); Blood Urea Nitrogen 37 mg/dl (7-17); Calcium 8.1 mg/dl (8.4-10.2); Carbon Dioxide 35 mmol/L (22.0-30.0); Chloride 89 mmol/L (98-107); Creatinine Clearance Estimated 30 mL/min (50-200); Estimated Glomerular Filt Rate 26 ml/min (>60); GFR (African American) 31 ML/MIN (>60); Glucose 89 mg/dl (74-100); Potassium 4.7 mmoL/L (3.5-5.1); Sodium 133 mmol/L (136-145)
--- NOTE | 2022-07-24 15:36 | XR_ITS ---
FINAL REPORT CLINICAL HISTORY: worsening SOA, confirm PICC placement COMPARISON: 07/21/2022 FINDINGS: PORTABLE CHEST A left chest port is present with the tip in the SVC. A new right PICC line is present with the tip in the SVC. There is mild cardiomegaly. The mediastinum is unremarkable. There is new patchy airspace opacities in the left lung base. There is no pneumothorax. IMPRESSION: New right PICC line with tip in the SVC. Worsening left lower lobe infiltrate consistent with acute pneumonia. Reviewed, Interpreted and Dictated by Frank Whitaker MD Transcribed by Naomi Gonzalez Authenticated and [facility]
--- NOTE | 2022-07-24 16:19 | PC.NURSE ---
OK per Dr Cardona to insert picc line instead of midline, if able
[2022-07-24 16:42] LABS: Microscopic, Urine URINE MICROSCOPIC (MICROSCOPIC)
--- NOTE | 2022-07-24 17:00 | EXP.ACUTE.PN ---
Subjective *Date: 07/24/22 *Time: 19:05 Interval history: Patient interactive on exam. Answering questions appropriately. Appears marginally less dyspneic today. Still on Ventimask, tolerating 96 to 100% on 40% Venti. Worsening edema after resuming IV fluids. Patient flipped back into A. fib. Blood pressure remains low but stable. Heart rate 90-120. Urine output remains poor. 20 to 30 cc/h. Urine quite dark, appears to have blood in it. Creatinine remains elevated this morning. Of note, lab has been obtaining blood from patient's fingers as she is a difficult stick. Potassium up initially this morning. Patient denies any chest pain, nausea, vomiting. Appears in mild respiratory distress. Continues to decline BiPAP placement. Discussed patient's condition, treatment, prognosis with daughter (Audra Kraus). Medical Exam Vital signs and Labs for Last 24 Hours: Vital Signs Temp Pulse Pulse Resp BP Pulse Ox FiO2 07/24/22 16:00 121 H 22 103/53 L 99 07/24/22 14:00 126 H 24 107/45 L 100 07/24/22 12:00 98.8 F 07/24/22 13:04 129 H 07/24/22 13:04 124 H 07/24/22 13:04 100 40 07/24/22 12:00 130 H 07/24/22 08:00 110 H 07/24/22 12:00 138 H 22 102/48 L 96 07/24/22 10:00 111 H 22 96/42 L 07/24/22 08:00 97 H 22 108/55 L 100 40 07/24/22 08:00 97 H 97 40 07/24/22 09:37 96 H 07/24/22 09:37 101 H 07/24/22 09:37 96 40 07/24/22 08:00 98.8 F 07/24/22 06:00 90 21 102/63 L 96 40 07/24/22 06:00 98 H 07/24/22 06:00 99 H 07/24/22 06:00 94 L 12 07/24/22 04:00 99 50 07/24/22 04:00 97.7 F 91 H 20 90/47 L 99 50 07/24/22 04:00 90 07/24/22 00:00 90 07/24/22 02:00 96 H 20 105/52 L 97 50 07/24/22 00:00 98.0 F 93 H 18 100/45 L 99 50 07/23/22 20:00 90 07/23/22 22:00 91 H 18 96/52 L 99 07/23/22 21:10 84 07/23/22 21:10 82 07/23/22 21:10 100 50 07/23/22 20:00 98.4 F 95 H 18 99/39 L 99 50 07/23/22 19:48 97 07/23/22 18:00 93 H 20 98/46 L 98 50 Intake and Output 07/24/22 07/24/22 07/24/22 07:59 15:59 23:59 Intake Total 60 / 120 60 / 120 Output Total 125 / 125 Balance -65 / -5 60 / -5 Intake: Intake, Oral Amount 60 / 120 60 / 120 Output: Output, Urine Amount (Catheter) 125 / 125 Light 125 / 125 Other: Number of Unmeasured Voids 0 0 Weight 76.535 kg Patient Weight 07/24/22 23:59 Weight 76.535 kg Laboratory Results - last 24 hr 07/22/22 11:52: Urine Color Yellow, Urine Appearance Clear, Urine pH 6.0, Ur Specific [place] 1.025, Urine Protein Negative, Urine Glucose (UA) Negative, Urine Ketones Trace, Urine Blood Trace-i, Urine Nitrate Negative, Urine Bilirubin 1+ A, Urine Urobilinogen 1.0, Ur Leukocyte Esterase Trace, Urine RBC 5-10, Urine WBC 10-20, Ur Squamous Epith Cells None, Urine Bacteria Trace 07/23/22 20:14: POC Glucose 125 H 07/23/22 22:57: Sodium 132 L, Potassium 5.3 H, Chloride 91 L, Carbon Dioxide 34 H, Anion Gap 12.3, BUN 29 H, Creatinine 1.60 H, Estimated Creat Clear 36, Estimated GFR 31 L, Est GFR ( Amer) 38 L, Glucose 111 H, Calcium 8.2 L 07/24/22 05:12: POC Glucose 118 H 07/24/22 05:30: WBC 9.6, RBC 2.65 L, Hgb 7.9 L, Hct 24.6 L, MCV 93.1, MCH 29.7, MCHC 31.9, RDW 16.9, Plt Count 429 H, MPV 11.4 H, Neut % (Auto) 89.2 H, Lymph % (Auto) 4.7 L, [place] % (Auto) 4.3, Eos % (Auto) 1.8, Baso % (Auto) 1.0, Neut # (Auto) 8.5 H, Lymph # (Auto) 0.4 L, [place] # (Auto) 0.4, Eos # (Auto) 0.2, Baso # (Auto) 0.1, Total Counted 100, Neutrophils % (Manual) 91 H, Lymphocytes % (Manual) 4 L, Monocytes % (Manual) 5, Nucleated RBCs 1, Platelet Estimate Slight increase, Hypochromasia 1+ 07/24/22 05:30: Sodium 134 L, Potassium 6.6 H* D, Chloride 94 L, Carbon Dioxide 30, Anion Gap 16.6 H, BUN 38 H D, Creatinine 1.70 H, Estimated Creat Clear 33, Estimated GFR 29 L,
[2022-07-24 17:09] LABS: Appearance,Urine CLEAR (Clear); Blood, Urine 3+ (Negative); Color,Urine BROWN (Yellow); Glucose,Urine (UA) Negative (Negative); Ketones,Urine TRACE (Negative); Leukocyte Esterase,Urine 2+ (Negative); Nitrate,Urine POSITIVE (Negative); PH,Urine 6.5 (5.0-8.5); Protein,Urine 2+ (Negative)
[2022-07-24 17:24] LABS: POC Glucose,Bedside 101 (70-110)
[2022-07-24 17:34] LABS: Bilirubin,Urine 2+ (Negative)
--- NOTE | 2022-07-24 17:44 | PC.NURSE ---
Patient has been restless most of the shift. pt is noted to yell out for various reasons. upon entering the room pt is unable to say what exactly she needed help with. staff frequently attempts to redirect pt, but is unsuccessful. pt lung sounds still contain crackles throughout. bowel sounds are active. pt has 3-4+ pitting edema in ble. stat lock was placed on gray cath this am, gray was irrigated and urine in tubing was noted to be slightly less red/bloody. gray bag to be changed out as well. pt has received 3 doses of metoprolol 5,mg iv with little to no change in pt afib/hr. pt had picc line placed this shift as well, pt tolerated fairly well.
[2022-07-24 18:21] LABS: Bacteria,Urine Trace /lpf; RBC,Urine TNTC #/hpf (0-3); Squamous Epithelial Cell,Urine Occasional #/hpf (0-5)
--- NOTE | 2022-07-24 18:52 | PC.NURSE ---
Late Entry: at approx 0930 pt was noted to be back in afib on site monitor. Dr Cardona was notified face to face. new orders consist of metoprolol 5 mg iv x 1 dose now.
[2022-07-24 20:15] LABS: Hematocrit 22.7 % (37.0-47.0); Hemoglobin 7.1 g/dL (12.2-16.2)
[2022-07-25] VITALS (35 sets, daily range): BP systolic 91–126; BP diastolic 40–76; PULSE 110–132; RESP 13–28; TEMP 35.6–37.1; O2SAT 93–100; BMI 29.7
--- NOTE | 2022-07-25 00:05 | PC.NURSE ---
1 unit prbc verified and started, see TAR
--- NOTE | 2022-07-25 02:19 | PC.NURSE ---
1 unit prbc complete
[2022-07-25 03:28] LABS: Basophils % 0.2 % (0.1-2.0); Eosinophils # 0.1 K/mm3 (0.0-0.4); Eosinophils % 1.2 % (0.1-12.0); Lymphocytes # 0.4 K/mm3 (0.7-4.5); Lymphocytes % 4.3 % (10-50); Mean Corpuscular HGB Conc 31.1 g/dL (31.8-35.4); Mean Corpuscular Hemoglobin 28.9 pg (27.0-31.2); Mean Platelet Volume 8.6 fl (7.4-10.4); Monocytes # 0.3 K/mm3 (0.1-1.0); Monocytes % 3.3 % (1.7-9.3); Neutrophils # 8.6 K/mm3 (1.8-7.8); Neutrophils % 91.1 % (37.0-80.0); Platelet Count 445 K/mm3 (142-424); Red Blood Count 2.98 M/mm3 (4.20-5.40); Red Cell Distribution Width 16.5 % (11.5-17.5); White Blood Count 9.4 K/mm3 (4.8-10.8)
[2022-07-25 03:29] LABS: Hematocrit 27.8 % (37.0-47.0); Hemoglobin 8.6 g/dL (12.2-16.2); MANUAL DIFFERENTIAL MANUAL DIFFERENTIAL (MANUAL DIFF)
[2022-07-25 04:31] LABS: Anisocytosis 2+; Lymphocytes % 6 % (10-50); Monocytes % 2 % (2-9); Neutrophils % 88 % (42-76); Platelet Estimate Slight Increase; Total Cells Counted 100
--- NOTE | 2022-07-25 07:48 | PC.NURSE ---
0720 PICC line dressing changed by Nova Canela as dressing was peeling around edges
[2022-07-25 08:06] LABS: Anion Gap 13.8 mEq/L (5-15); Blood Urea Nitrogen 38 mg/dl (7-17); Calcium 8.1 mg/dl (8.4-10.2); Carbon Dioxide 32 mmol/L (22.0-30.0); Chloride 91 mmol/L (98-107); Creatinine Clearance Estimated 37 mL/min (50-200); Estimated Glomerular Filt Rate 31 ml/min (>60); GFR (African American) 38 ML/MIN (>60); Glucose 78 mg/dl (74-100); Potassium 4.8 mmoL/L (3.5-5.1); Sodium 132 mmol/L (136-145)
[2022-07-25 08:14] LABS: Haptoglobin 357 mg/dL (42-346)
[2022-07-25 08:50] LABS: Creatine Kinase 58 U/L (30-135)
[2022-07-25 11:43] LABS: POC Glucose,Bedside 93 (70-110)
[2022-07-25 11:43] LABS: POC Glucose,Bedside 99 (70-110)
[2022-07-25 11:43] LABS: POC Glucose,Bedside 85 (70-110)
--- NOTE | 2022-07-25 13:13 | EXP.ACUTE.PN ---
Subjective *Date: 07/25/22 *Time: 15:20 Interval history: Patient resting comfortably, answers questions and open eyes to verbal stimuli but refusing to eat this morning. Stable on 4 L nasal cannula. Blood pressure within an acceptable range (systolics 95-120). Remains in A. fib with heart rate 90-120. Appears quite ill. Urine remains dark with sediment in Light. 20 to 30 cc/h of output. Patient denies nausea, vomiting, abdominal pain. Says al when touched anywhere, per daughter this is not uncommon and at baseline trait. Patient told me multiple times this morning that she just wanted to . Medical Exam Vital signs and Labs for Last 24 Hours: Vital Signs Temp Pulse Pulse Resp BP BP Pulse Ox 07/25/22 12:55 98.2 F 124 H 18 114/54 L 100 07/25/22 11:55 98.4 F 130 H 19 113/69 100 07/25/22 11:40 98.2 F 116 H 18 122/63 100 07/25/22 11:25 98.4 F 110 H 18 117/45 L 100 07/25/22 12:00 98.4 F 07/25/22 10:00 98.0 F 132 H 18 113/40 L 95 07/25/22 11:10 98.3 F 118 H 19 99/48 L 100 07/25/22 11:05 98.4 F 126 H 19 99/47 L 100 07/25/22 11:00 98.0 F 119 H 20 91/49 L 100 07/25/22 10:55 97.8 F 124 H 19 112/44 L 100 07/25/22 10:39 97.8 F 117 H 20 100/56 L 100 07/25/22 10:21 124 H 07/25/22 10:21 127 H 07/25/22 10:21 96 07/25/22 08:00 98.2 F 07/25/22 06:00 117 H 13 108/62 L 100 07/25/22 06:22 127 H 07/25/22 06:22 126 H 07/25/22 06:22 98 07/25/22 04:00 124 H 22 118/50 L 97 07/25/22 04:00 122 H 07/25/22 03:56 98.0 F 07/25/22 02:19 96.4 F L 129 H 23 110/62 94 L 07/25/22 02:05 96.4 F L 129 H 21 107/42 L 95 07/25/22 00:00 100 07/25/22 00:00 120 H 07/25/22 01:05 96.3 F L 111 H 19 114/53 L 100 07/25/22 00:50 96.1 F L 123 H 28 H 114/70 96 07/25/22 00:35 96.1 F L 124 H 20 110/60 100 07/25/22 00:20 96.3 F L 121 H 23 123/52 L 100 07/25/22 00:15 96.3 F L 120 H 20 109/56 L 100 07/25/22 00:10 96.2 F L 111 H 21 104/66 L 100 07/25/22 00:05 96.6 F L 130 H 15 111/55 L 100 07/24/22 23:55 96.6 F L 123 H 33 H 114/56 L 90 L 07/24/22 20:00 140 H 07/24/22 22:00 120 H 21 101/55 L 100 07/24/22 21:00 121 H 26 H 116/66 100 07/24/22 20:00 142 H 16 128/34 L 100 07/24/22 20:33 126 H 07/24/22 20:33 126 H 07/24/22 20:33 100 07/24/22 20:00 97.3 F L 07/24/22 18:44 97.3 F L 07/24/22 16:00 100 H 07/24/22 18:00 137 H 22 110/55 L 99 07/24/22 16:00 124 H 100 07/24/22 16:00 98.1 F 07/24/22 16:00 121 H 22 103/53 L 99 07/24/22 14:00 126 H 24 107/45 L 100 FiO2 07/25/22 12:55 07/25/22 11:55 07/25/22 11:40 07/25/22 11:25 07/25/22 12:00 07/25/22 10:00 07/25/22 11:10 07/25/22 11:05 07/25/22 11:00 07/25/22 10:55 07/25/22 10:39 07/25/22 10:21 07/25/22 10:21 07/25/22 10:21 07/25/22 08:00 07/25/22 06:00 07/25/22 06:22 07/25/22 06:22 07/25/22 06:22 07/25/22 04:00 07/25/22 04:00 07/25/22 03:56 07/25/22 02:19 07/25/22 02:05 07/25/22 00:00 07/25/22 00:00 07/25/22 01:05 07/25/22 00:50 07/25/22 00:35 07/25/22 00:20 07/25/22 00:15 07/25/22 00:10 07/25/22 00:05 07/24/22 23:55 07/24/22 20:00 07/24/22 22:00 07/24/22 21:00 07/24/22 20:00 07/24/22 20:33 07/24/22 20:33 07/24/22 20:33 07/24/22 20:00 07/24/22 18:44 07/24/22 16:00 07/24/22 18:00 40 07/24/22 16:00 40 07/24/22 16:00 07/24/22 16:00 07/24/22 14:00 Intake and Output 07/24/22 07/25/22 07/25/22 23:59 07:59 15:59 Intake Total 845 / 1025 310 / 310 0 / 310 Output Total 240 / 365 225 / 375 150 / 375 Balance 605 / 660 85 / -65 -150 / -65 Intake: Intake, Oral Amount 60 / 240 60 / 60 Intake, Total IV Amount 785 / 785 Levof
--- NOTE | 2022-07-25 15:58 | PC.NURSE ---
post hemoglobin and hematocrit not collected until [address] Cardona stated he was fine with waiting to collect both samples at one time.
[2022-07-25 16:29] LABS: Hematocrit 32.1 % (37.0-47.0)
[2022-07-25 16:32] LABS: Chloride 91 mmol/L (98-107)
[2022-07-25 16:33] LABS: Potassium 4.4 mmoL/L (3.5-5.1); Sodium 131 mmol/L (136-145)
[2022-07-25 16:35] LABS: Alanine Aminotransferase 143 U/L (12-78); Aspartate Amino Transferase 81 U/L (14-36); Blood Urea Nitrogen 33 mg/dl (7-17); Creatinine Clearance Estimated 42 mL/min (50-200); Estimated Glomerular Filt Rate 36 ml/min (>60); GFR (African American) 44 ML/MIN (>60)
[2022-07-25 16:36] LABS: Albumin Level 2.9 g/dl (3.5-5.0); Albumin/Globulin Ratio 1.1 (1.1-1.8); Alkaline Phosphatase 102 U/L (38-126); Anion Gap 11.4 mEq/L (5-15); Bilirubin,Total 0.7 mg/dl (0.2-1.3); Carbon Dioxide 33 mmol/L (22.0-30.0); Globulin 2.7 g/dL (1.3-3.2); Glucose 73 mg/dl (74-100); Total Protein,Serum 5.6 g/dl (6.3-8.2)
[2022-07-25 17:02] LABS: Hemoglobin 10.1 g/dL (12.2-16.2)
[2022-07-25 17:11] LABS: POC Glucose,Bedside 83 (70-110)
--- NOTE | 2022-07-25 17:52 | PC.NURSE ---
Patient confused during shift. Alert to self only. 1 unit of blood transfused, new consent obtained signed by daughter. Patient weaned to 3LNC. VS stable during shift. Patient finally agreed to swallow metoprolol after coaching from Dr. Cardona. Turned q2. Patient refuses to eat and drink. Lungs on ascultation diminished with fine crackles at bases. No bowel movement. Urine light yellow. No other complaints noted.
[2022-07-26] VITALS (25 sets, daily range): BP systolic 79–148; BP diastolic 38–66; PULSE 81–140; RESP 16–34; TEMP 36.1–36.9; O2SAT 72–100; BMI 29.7
--- NOTE | 2022-07-26 06:47 | PC.NURSE ---
pt arousable to name calling and touching shoulder, pt only mumbles ow , telemetry reveals atrial fib with rate fluctuating from 115 to 130's at times, hr does not sustain in the 130's, ble edema 2-3+, bue edema 1-2+, lung sounds very diminished with respirations shallow at times, guppie breathing noted, 02 sats remain 100% on 3L pnc, f/c to bsd with CYU noted, stage 1 on coccyx area, no other issues noted, pt more lethargic, Marciano Chun [employer] is aware and stated she called daughter earlier in the night already regarding pts declining status
--- NOTE | 2022-07-26 07:42 | XR_ITS ---
PROCEDURE INFORMATION: Exam: XR Chest Exam date and time: 07/26/2022 7:43 AM Age: 76 years old Clinical indication: Shortness of breath; Additional info: Worsening respiratory distress TECHNIQUE: Imaging protocol: Radiologic exam of the chest. Views: 1 view. COMPARISON: CR XR CHEST PORTABLE PICC PLAC 07/24/2022 3:43 PM FINDINGS: Tubes, catheters and devices: Stable catheters. Lungs: Retrocardiac and left greater than right basal parenchymal disease cannot be excluded. Pleural spaces: Small left and possible trace right pleural effusions. Heart/Mediastinum: Mild cardiomegaly and borderline vascularity. Bones/joints: Unremarkable. IMPRESSION: Essentially stable appearance compared to 07/24/2022, with findings above.
--- NOTE | 2022-07-26 07:50 | EXP.ACUTE.PN ---
Subjective *Date: 07/26/22 *Time: 16:49 Interval history: On morning rounds, patient more somnolent, stable on nasal cannula. Vitals stable with tachyarrhythmia heart rate 90-120, MAP greater than 65, O2 sats in the 90s. Opened eyes to painful stimuli but appears disoriented. Unable to assess review of systems. Afebrile overnight. Reevaluated later in the morning with clinical change. Became hypoxic and hypotensive. Transition to Ventimask 50%. Discussed goals of care with daughter at bedside, initiated on vasopressors and broadened antibiotics. Medical Exam Vital signs and Labs for Last 24 Hours: Vital Signs Temp Pulse Pulse Resp BP BP Pulse Ox 07/26/22 04:00 119 H 20 148/66 H 100 07/26/22 02:00 111 H 22 107/62 L 100 07/26/22 00:00 119 H 21 101/54 L 100 07/26/22 06:25 125 H 07/26/22 06:25 124 H 07/26/22 06:25 100 07/25/22 22:00 116 H 22 102/58 L 97 07/26/22 06:00 112 H 21 91/49 L 100 07/26/22 04:00 100 07/26/22 04:00 115 H 07/26/22 04:00 97.0 F L 07/25/22 20:00 110 H 07/26/22 00:00 112 H 07/25/22 23:46 98.8 F 07/25/22 20:00 100 07/25/22 20:00 96.9 F L 132 H 21 114/75 95 07/25/22 19:13 07/25/22 18:00 98.1 F 125 H 18 115/46 L 100 07/25/22 14:30 98.3 F 127 H 20 115/74 99 07/25/22 13:30 98.3 F 132 H 21 126/76 93 L 07/25/22 16:00 110 H 07/25/22 12:00 120 H 07/25/22 08:00 110 H 07/25/22 15:36 98.1 F 07/25/22 12:55 98.2 F 124 H 18 114/54 L 100 07/25/22 11:55 98.4 F 130 H 19 113/69 100 07/25/22 11:40 98.2 F 116 H 18 122/63 100 07/25/22 11:25 98.4 F 110 H 18 117/45 L 100 07/25/22 12:00 98.4 F 07/25/22 10:00 98.0 F 132 H 18 113/40 L 95 07/25/22 11:10 98.3 F 118 H 19 99/48 L 100 07/25/22 11:05 98.4 F 126 H 19 99/47 L 100 07/25/22 11:00 98.0 F 119 H 20 91/49 L 100 07/25/22 10:55 97.8 F 124 H 19 112/44 L 100 07/25/22 10:39 97.8 F 117 H 20 100/56 L 100 07/25/22 10:21 124 H 07/25/22 10:21 127 H 07/25/22 10:21 96 07/25/22 08:00 98.2 F FiO2 07/26/22 04:00 07/26/22 02:00 07/26/22 00:00 07/26/22 06:25 07/26/22 06:25 07/26/22 06:25 07/25/22 22:00 07/26/22 06:00 07/26/22 04:00 07/26/22 04:00 07/26/22 04:00 07/25/22 20:00 07/26/22 00:00 07/25/22 23:46 07/25/22 20:00 07/25/22 20:00 07/25/22 19:13 32 07/25/22 18:00 07/25/22 14:30 07/25/22 13:30 07/25/22 16:00 07/25/22 12:00 07/25/22 08:00 07/25/22 15:36 07/25/22 12:55 07/25/22 11:55 07/25/22 11:40 07/25/22 11:25 07/25/22 12:00 07/25/22 10:00 07/25/22 11:10 07/25/22 11:05 07/25/22 11:00 07/25/22 10:55 07/25/22 10:39 07/25/22 10:21 07/25/22 10:21 07/25/22 10:21 07/25/22 08:00 Intake and Output 07/25/22 07/25/22 07/26/22 15:59 23:59 07:59 Intake Total 250 / 2678 2118 / 2678 1239 / 1239 Output Total 150 / 1225 850 / 1225 400 / 400 Balance 100 / 1453 1268 / 1453 839 / 839 Intake: Intake, Oral Amount 0 / 0 Intake, Total IV Amount 2117 1239 / 1239 0.9 % Sodium Chloride 1,000 ml 1239 / 1239 @ 100 mls/hr IV .Q10H [facility] Rx#: [id number] Sodium Chloride 0.45 % 1,000 ml 2117 @ 100 mls/hr IV .Q10H [facility] Rx#: [id number] Intake (Blood Product) Amt 250 / 500 Red Blood Cells Unit 250 / 250 [id number] Output: Output, Urine Amount 150 / 375 400 / 400 Output, Urine Amount (Catheter) 850 / 850 Light 850 / 850 Other: Number of Unmeasured Voids 0 0 0 Weight 79.01 kg Patient Weight 07/26/22 23:59 Weight 79.01 kg Laboratory Results - last 24 hr 07/22/22 01:20: Haptoglobin 357 H 07/24/22 16:37: Urine Color Brown, Urine Appearance Clear, Urine pH 6.5, Ur Specific [place] 1.020, Urine Pr
[2022-07-26 08:06] LABS: Basophils % 0.2 % (0.1-2.0); Eosinophils % 0.4 % (0.1-12.0); Hematocrit 34.9 % (37.0-47.0); Hemoglobin 10.7 g/dL (12.2-16.2); Lymphocytes # 0.3 K/mm3 (0.7-4.5); Lymphocytes % 3.2 % (10-50); Mean Corpuscular HGB Conc 30.6 g/dL (31.8-35.4); Mean Corpuscular Hemoglobin 29.8 pg (27.0-31.2); Mean Corpuscular Volume 97.3 fl (81-99); Mean Platelet Volume 9.1 fl (7.4-10.4); Monocytes # 0.4 K/mm3 (0.1-1.0); Monocytes % 4.2 % (1.7-9.3); Neutrophils # 9.4 K/mm3 (1.8-7.8); Neutrophils % 91.9 % (37.0-80.0); Platelet Count 401 K/mm3 (142-424); Red Blood Count 3.59 M/mm3 (4.20-5.40); Red Cell Distribution Width 16.1 % (11.5-17.5); White Blood Count 10.2 K/mm3 (4.8-10.8)
[2022-07-26 08:11] LABS: MANUAL DIFFERENTIAL MANUAL DIFFERENTIAL (MANUAL DIFF)
[2022-07-26 08:15] LABS: Alanine Aminotransferase 127 U/L (12-78); Albumin/Globulin Ratio 1.1 (1.1-1.8); Alkaline Phosphatase 114 U/L (38-126); Anion Gap 15.4 mEq/L (5-15); Aspartate Amino Transferase 61 U/L (14-36); Bilirubin,Total 0.6 mg/dl (0.2-1.3); Blood Urea Nitrogen 36 mg/dl (7-17); Calcium 8.1 mg/dl (8.4-10.2); Carbon Dioxide 32 mmol/L (22.0-30.0); Chloride 91 mmol/L (98-107); Creatinine Clearance Estimated 42 mL/min (50-200); Estimated Glomerular Filt Rate 36 ml/min (>60); GFR (African American) 44 ML/MIN (>60); Globulin 2.8 g/dL (1.3-3.2); Glucose 68 mg/dl (74-100); Magnesium 1.7 mg/dl (1.6-2.3); Potassium 4.4 mmoL/L (3.5-5.1); Sodium 134 mmol/L (136-145); Total Protein,Serum 5.8 g/dl (6.3-8.2)
[2022-07-26 09:46] LABS: Peripheral Smear Review Scanned Result
--- NOTE | 2022-07-26 11:32 | EXP.PHA.CONS ---
Pharmacy Consult Date: 07/26/22 Time: 11:38 Referring provider: DR. GORDON Reason for Consult:: VANCOMYCIN DOSING Allergies Allergy/AdvReac Type Severity Reaction Status Date / Time Penicillins Allergy Verified 07/22/22 09:47 warfarin AdvReac Verified 07/22/22 09:47 pain medications AdvReac Uncoded 07/21/22 22:47 pneumonia vaccine AdvReac Uncoded 07/21/22 22:47 Home Medications Medication Instructions Recorded Confirmed Type acetaminophen 500 mg tablet 1,000 mg PO Q6H PRN Pain 07/22/22 07/22/22 History aluminum-mag hydroxide-simethicone 10 ml PO Q12H PRN Indigestion 07/22/22 07/22/22 History 400 mg-400 mg-40 mg/5 mL oral susp (Mylanta Maximum Strength) apixaban 2.5 mg tablet (Eliquis) 2.5 mg PO BID congestive heart 07/22/22 07/22/22 History failure atorvastatin 40 mg tablet 40 mg PO DAILY congestive heart 07/22/22 07/22/22 History failure budesonide 160 mcg-glycopyr 9 2 puff inhalation BID COPD 07/22/22 07/22/22 History mcg-formot 4.8 mcg/actuation HFA inhaler (Breztri Aerosphere) calcium 600 mg capsule 600 mg PO DAILY Supplement 07/22/22 07/22/22 History cephalexin 500 mg capsule 500 mg PO TID cellulitis 07/22/22 07/22/22 History clopidogrel 75 mg tablet 75 mg PO DAILY congestive heart 07/22/22 07/22/22 History failure cyanocobalamin (vitamin B-12) 1,000 mcg PO DAILY Supplement 07/22/22 07/22/22 History 1,000 mcg tablet folic acid 1 mg tablet 1 mg PO DAILY Supplement 07/22/22 07/22/22 History furosemide 40 mg tablet 40 mg PO DAILY Edema 07/22/22 07/22/22 History guaifenesin 600 mg tablet, 600 mg PO BID allergies 07/22/22 07/22/22 History extended release 12 hr ipratropium 0.5 mg-albuterol 3 mg 3 ml inhalation QID COPD 07/22/22 07/22/22 History (2.5 mg base)/3 mL nebulization soln loratadine 10 mg tablet 10 mg PO DAILY allergies 07/22/22 07/22/22 History metformin 500 mg tablet 500 mg PO BID Diabetes 07/22/22 07/22/22 History multivitamin with iron-mineral 1 tab PO DAILY Supplement 07/22/22 07/22/22 History nitroglycerin 0.4 mg sublingual 0.4 mg sublingual Q5M PRN Angina 07/22/22 07/22/22 History tablet pantoprazole 40 mg tablet,delayed 40 mg PO DAILY GERD 07/22/22 07/22/22 History release potassium chloride 20 mEq 20 meq PO DAILY potassium 07/22/22 07/22/22 History tablet,extended release replacement spironolactone 25 mg tablet 25 mg PO DAILY congestive heart 07/22/22 07/22/22 History failure New Prescriptions to Start Prescriptions: Height: 1.63 m Weight: 79.01 kg Laboratory Results:: Laboratory Results - last 24 hr 07/24/22 16:37: Urine Color Brown, Urine Appearance Clear, Urine pH 6.5, Ur Specific [place] 1.020, Urine Protein 2+, Urine Glucose (UA) Negative, Urine Ketones Trace, Urine Blood 3+, Urine Nitrate Positive, Urine Bilirubin 2+ A, Urine Urobilinogen 1.0, Ur Leukocyte Esterase 2+ A, Urine RBC Tntc, Urine WBC 5-10, Ur Squamous Epith Cells Occasional, Urine Bacteria Trace 07/24/22 20:38: POC Glucose 99 07/24/22 21:27: Crossmatch (AHG) See Detail 07/25/22 06:29: POC Glucose 93 07/25/22 11:15: POC Glucose 85 07/25/22 16:00: Sodium 131 L, Potassium 4.4, Chloride 91 L, Carbon Dioxide 33 H, Anion Gap 11.4, BUN 33 H, Creatinine 1.40 H, Estimated Creat Clear 42, Estimated GFR 36 L, Est GFR ( Amer) 44 L, Glucose 73 L, Calcium 8.0 L, Total Bilirubin 0.7, AST 81 H D, ALT 143 H D, Alkaline Phosphatase 102, Total Protein 5.6 L, Albumin 2.9 L, Globulin 2.7, Albumin/Globulin Ratio 1.1 07/25/22 16:00: Hgb 10.1 L D, Hct 32.1 L 07/25/22 16:22: POC Glucose 83 07/26/22 07:15: WBC 10.2, RBC 3.59 L, Hgb 10.7 L, Hct 34.9 L, MCV 97.3, MCH 29.8, MCHC 30.6 L, RDW 16.1, Plt Count 401, MPV 9.1, Neut % (Auto) 91.9 H, Lymph % (Auto) 3.2 L, [place] % (Auto) 4.2, Eos % (Auto) 0.4, Baso % (Auto) 0.2, Neut # (Auto) 9.4 H, Lymph # (Auto) 0.3 L, [place] # (Auto) 0.4, Eos # (Auto) 0.0, Baso # (Auto) 0.0 07/26/22 07:15: Sodium 134 L, Potassium 4.4, Chloride 91 L, Carbon Dioxide 32 H, Anion
[2022-07-26 11:38] LABS: Lymphocytes % 8 % (10-50); Monocytes % 2 % (2-9); Neutrophils % 90 % (42-76); RBC Morphology Normal; Total Cells Counted 100
[2022-07-26 11:39] LABS: Platelet Estimate Normal
--- NOTE | 2022-07-26 12:38 | PC.NURSE ---
Levo and cardizem gtt started per nov. Increased cardizem to 10 ml/hr at this time.
[2022-07-26 12:47] LABS: POC Glucose,Bedside 92 (70-110)
--- NOTE | 2022-07-26 13:15 | PC.NURSE ---
Cardizem increased to 15 ml/hr and levo 4 mcg/min.
[2022-07-26 16:46] LABS: POC Glucose,Bedside 82 (70-110)
[2022-07-26 16:46] LABS: POC Glucose,Bedside 79 (70-110)
[2022-07-26 17:36] LABS: Alanine Aminotransferase 122 U/L (12-78); Albumin Level 3.2 g/dl (3.5-5.0); Alkaline Phosphatase 100 U/L (38-126); Anion Gap 16.5 mEq/L (5-15); Aspartate Amino Transferase 69 U/L (14-36); Bilirubin,Total 0.9 mg/dl (0.2-1.3); Blood Urea Nitrogen 38 mg/dl (7-17); Carbon Dioxide 29 mmol/L (22.0-30.0); Chloride 92 mmol/L (98-107); Creatinine Clearance Estimated 45 mL/min (50-200); Estimated Glomerular Filt Rate 40 ml/min (>60); GFR (African American) 48 ML/MIN (>60); Globulin 3.2 g/dL (1.3-3.2); Potassium 5.5 mmoL/L (3.5-5.1); Sodium 132 mmol/L (136-145); Total Protein,Serum 6.4 g/dl (6.3-8.2)
[2022-07-26 17:51] LABS: Glucose 107 mg/dl (74-100)
[2022-07-26 18:10] LABS: POC Glucose,Bedside 111 (70-110)
--- NOTE | 2022-07-26 19:12 | PC.NURSE ---
Cardizem gtt currently @ 15 ml/hr and levo gtt at 20 mcg/min. Dr. Cardona aware of ESBL in urine. ABT changed. Turned q 2. Dsg changed to coccyx and dsg to rle changed. Wound consult ordered for tomorrow. CB in reach. Pt continues to be weak and slept most of the day. Will open eyes when spoke to and resposive to tactile stimuli.
--- NOTE | 2022-07-26 20:00 | PC.NURSE ---
107/48 (67), pt continues on levo drip at 20mcg/min HR 90-109, pt continues on cardizem drip at 15mg/hr
[2022-07-27] VITALS (19 sets, daily range): BP systolic 58–109; BP diastolic 20–60; PULSE 56–101; RESP 14–28; TEMP 36.1–36.4; O2SAT 88–100; BMI 30.5
--- NOTE | 2022-07-27 04:22 | PC.NURSE ---
HR consistently 70-80's, decreased diltiazem drip to 10mg/hr
--- NOTE | 2022-07-27 04:24 | PC.NURSE ---
notified RT Will pt's oxygen saturations low to mid 80's on 50% venti mask, 100% NRB placed on pt and oxygen saturations back to 89%
--- NOTE | 2022-07-27 04:30 | PC.NURSE ---
oxgen saturations increased to 95% on 100%NRB
--- NOTE | 2022-07-27 05:32 | PC.NURSE ---
HR sustained in 60's, decreased cardizem drip to 5mg/hr bp 90/44 (59), increased levophed drip to 22mcg/min
[2022-07-27 06:41] LABS: Basophils # 0.1 K/mm3 (0-0.2); Basophils % 0.5 % (0.1-2.0); Eosinophils # 0.1 K/mm3 (0.0-0.4); Eosinophils % 0.5 % (0.1-12.0); Hematocrit 35.4 % (37.0-47.0); Hemoglobin 10.4 g/dL (12.2-16.2); Lymphocytes # 0.2 K/mm3 (0.7-4.5); Lymphocytes % 1.6 % (10-50); Mean Corpuscular HGB Conc 29.4 g/dL (31.8-35.4); Mean Corpuscular Hemoglobin 29.7 pg (27.0-31.2); Mean Corpuscular Volume 100.9 fl (81-99); Mean Platelet Volume 8.9 fl (7.4-10.4); Monocytes # 0.5 K/mm3 (0.1-1.0); Monocytes % 3.5 % (1.7-9.3); Neutrophils # 13.2 K/mm3 (1.8-7.8); Neutrophils % 93.8 % (37.0-80.0); Platelet Count 506 K/mm3 (142-424); Red Blood Count 3.51 M/mm3 (4.20-5.40)
[2022-07-27 06:44] LABS: MANUAL DIFFERENTIAL MANUAL DIFFERENTIAL (MANUAL DIFF)
[2022-07-27 06:54] LABS: Alanine Aminotransferase 101 U/L (12-78); Alkaline Phosphatase 119 U/L (38-126); Aspartate Amino Transferase 40 U/L (14-36); Bilirubin,Total 0.5 mg/dl (0.2-1.3); Blood Urea Nitrogen 40 mg/dl (7-17); Calcium 7.9 mg/dl (8.4-10.2); Carbon Dioxide 30 mmol/L (22.0-30.0); Chloride 94 mmol/L (98-107); Creatinine Clearance Estimated 34 mL/min (50-200); Estimated Glomerular Filt Rate 27 ml/min (>60); GFR (African American) 33 ML/MIN (>60); Globulin 2.9 g/dL (1.3-3.2); Glucose 182 mg/dl (74-100); Magnesium 1.6 mg/dl (1.6-2.3); Sodium 134 mmol/L (136-145); Total Protein,Serum 5.9 g/dl (6.3-8.2)
--- NOTE | 2022-07-27 06:55 | PC.NURSE ---
bp 92/42, increased levo drip to 24mcg/min
[2022-07-27 07:34] LABS: Anisocytosis 1+; Lymphocytes % 4 % (10-50); Macrocytosis 1+; Monocytes % 2 % (2-9); Neutrophils % 91 % (42-76); Nucleated Red Blood Cells 1; Total Cells Counted 100
[2022-07-27 07:35] LABS: Hypochromasia 1+; Platelet Estimate Moderate Increase
--- NOTE | 2022-07-27 07:52 | PC.NURSE ---
PT IVF and Diltiazem both stopped at this time r/t MD telephone order.
--- NOTE | 2022-07-27 07:58 | PC.NURSE ---
During assessment pt does not open eyes to stimulation, she does slightly moan with tactile stimulation.
--- NOTE | 2022-07-27 09:33 | EXP.CARD.PN ---
Subjective Subjective Date: 07/27/22 Time: 09:23 Principal diagnosis: Afib rvr, angina, anasarca Interval history: 76-year-old white female, with past medical history of coronary artery disease status post PCI, chronic A. fib, chronic anticoagulation with Eliquis, COPD, and diabetes mellitus type 2 was transferred to this facility from [facility] for cardiac evaluation for A. fib RVR, chest pain and volume overload. Preliminary echo read on 07/22 showed reduced ejection fraction of 35-40. This was presumed to be a new onset cardiomyopathy. Patient underwent right and left heart cath to rule out ischemic cardiomyopathy and for evaluation of pulmonary hypertension. Patient also underwent cardioversion for A. fib in which patient was converted to normal sinus rhythm and was maintained for short period of time. Right and left heart cath report as below: IMPRESSION Coronary disease as described above with medical management being most warranted with a coronary artery disease not explaining patient's biventricular heart failure Equalization of pressures with a prominent Y descent can suggestive of constrictive pericarditis Atrial fibrillation successfully converted into sinus rhythm PLAN 1. High resolution CAT scan of the chest with specific attention looking at pericardial thickness to evaluate for constrictive pericarditis 2. Pending the results of the CAT scan it is possible patient could rather be suffering from a restrictive cardiomyopathy.? Recommend CMR if pericardial thickness is not identified 3. Medical management for coronary artery disease 4. It is possible patient may be experiencing biventricular heart failure all from diastolic dysfunction now with some degree of LV dysfunction.? Recommend high-dose diuretics and continue to diurese until a significant increase in creatinine has occurred or until patient's anasarca is resolved 5. Continue with Eliquis for atrial fibrillation. Patient underwent CT of chest which revealed bibasilar consolidation with overlying atelectasis and 2 right lung nodules. Patient was also noted to have an irregular density within fat medial to the spleen of unclear etiology. The pericardium was noted to be 2 mm and did not appear thickened. Official echo read from [facility] revealed a normal ejection fraction of 50 to 60%. There was no regional wall motion abnormality seen and diastolic function was unable to be assessed. Patient was started on diuretics but eventually they were held due to worsening creatinine. Liver enzymes also were noted to be elevated after a short duration of amio which has since been discontinued and statin is on hold. Patient continued to decline over the weekend. Patient went back into afib but remains rate controlled. Yesterday morning, patient became hypoxic and hypotensive leading to concern for septic shock possibly from pneumonia and UTI. Chest xray on 07/24 showed a worsening left lower lobe infiltrate consistent with acute pneumonia. Initial urine on presentation showed gram-negative rods in which patient was started on levofloxacin. Culture returned showed ESBL Klebsiella and antibiotic was changed to meropenem on . Today patient remains on 100 % nonrebreather and Levo for pressure support. Responds to painful stemuli. Anasarca noted. Not able to take PO meds at this time. Labs as follow WBC 14 Hemoglobin 10.4 Sodium 134 Creatinine 1.8 AST 40 ALT 101 Exam Data for Last 24 hours Vital signs and Labs for Last 24 Hours: Temp Pulse Resp BP Pulse Ox FiO2 97.5 F L 60 18 101/40 L 95 100 07/27/22 04:00 07/27/22 08:00 07/27/22 08:00 07/27/22 08:00 07/27/22 08:00 07/27/22 08:00 Laboratory Results - last 24 hr 07/25/22 20:08: POC Glucose 82 07/26/22 06:37: POC Glucose 79 07/26/22 07:15: Total Counted 100, Neutrophils % (Manual) 90 H, Lymphocytes % (Manual) 8 L, Monocytes % (Manual) 2, Platelet Estimate Normal, RBC Morphology Normal 07/26/22 12:27
--- NOTE | 2022-07-27 09:39 | EXP.PHA.CONS ---
Pharmacy Consult Date: 07/27/22 Time: 09:40 Referring provider: DR GORDON Reason for Consult:: VANCOMYCIN DOSE ADJUSTMENT BASED ON WORSENING SERUM CREATININE. Allergies Allergy/AdvReac Type Severity Reaction Status Date / Time Penicillins Allergy Verified 07/22/22 09:47 warfarin AdvReac Verified 07/22/22 09:47 pain medications AdvReac Uncoded 07/21/22 22:47 pneumonia vaccine AdvReac Uncoded 07/21/22 22:47 Home Medications Medication Instructions Recorded Confirmed Type acetaminophen 500 mg tablet 1,000 mg PO Q6H PRN Pain 07/22/22 07/22/22 History aluminum-mag hydroxide-simethicone 10 ml PO Q12H PRN Indigestion 07/22/22 07/22/22 History 400 mg-400 mg-40 mg/5 mL oral susp (Mylanta Maximum Strength) apixaban 2.5 mg tablet (Eliquis) 2.5 mg PO BID congestive heart 07/22/22 07/22/22 History failure atorvastatin 40 mg tablet 40 mg PO DAILY congestive heart 07/22/22 07/22/22 History failure budesonide 160 mcg-glycopyr 9 2 puff inhalation BID COPD 07/22/22 07/22/22 History mcg-formot 4.8 mcg/actuation HFA inhaler (Breztri Aerosphere) calcium 600 mg capsule 600 mg PO DAILY Supplement 07/22/22 07/22/22 History cephalexin 500 mg capsule 500 mg PO TID cellulitis 07/22/22 07/22/22 History clopidogrel 75 mg tablet 75 mg PO DAILY congestive heart 07/22/22 07/22/22 History failure cyanocobalamin (vitamin B-12) 1,000 mcg PO DAILY Supplement 07/22/22 07/22/22 History 1,000 mcg tablet folic acid 1 mg tablet 1 mg PO DAILY Supplement 07/22/22 07/22/22 History furosemide 40 mg tablet 40 mg PO DAILY Edema 07/22/22 07/22/22 History guaifenesin 600 mg tablet, 600 mg PO BID allergies 07/22/22 07/22/22 History extended release 12 hr ipratropium 0.5 mg-albuterol 3 mg 3 ml inhalation QID COPD 07/22/22 07/22/22 History (2.5 mg base)/3 mL nebulization soln loratadine 10 mg tablet 10 mg PO DAILY allergies 07/22/22 07/22/22 History metformin 500 mg tablet 500 mg PO BID Diabetes 07/22/22 07/22/22 History multivitamin with iron-mineral 1 tab PO DAILY Supplement 07/22/22 07/22/22 History nitroglycerin 0.4 mg sublingual 0.4 mg sublingual Q5M PRN Angina 07/22/22 07/22/22 History tablet pantoprazole 40 mg tablet,delayed 40 mg PO DAILY GERD 07/22/22 07/22/22 History release potassium chloride 20 mEq 20 meq PO DAILY potassium 07/22/22 07/22/22 History tablet,extended release replacement spironolactone 25 mg tablet 25 mg PO DAILY congestive heart 07/22/22 07/22/22 History failure New Prescriptions to Start Prescriptions: Height: 1.63 m Weight: 81.193 kg Laboratory Results:: Laboratory Results - last 24 hr 07/25/22 20:08: POC Glucose 82 07/26/22 06:37: POC Glucose 79 07/26/22 07:15: Total Counted 100, Neutrophils % (Manual) 90 H, Lymphocytes % (Manual) 8 L, Monocytes % (Manual) 2, Platelet Estimate Normal, RBC Morphology Normal 07/26/22 12:27: POC Glucose 92 07/26/22 17:15: Sodium 132 L, Potassium 5.5 H D, Chloride 92 L, Carbon Dioxide 29, Anion Gap 16.5 H, BUN 38 H, Creatinine 1.30 H, Estimated Creat Clear 45, Estimated GFR 40 L, Est GFR ( Amer) 48 L, Glucose 107 H D, Calcium 8.0 L, Total Bilirubin 0.9, AST 69 H, ALT 122 H, Alkaline Phosphatase 100, Total Protein 6.4, Albumin 3.2 L, Globulin 3.2, Albumin/Globulin Ratio 1.0 L 07/26/22 17:23: POC Glucose 111 H 07/27/22 06:15: WBC 14.0 H D, RBC 3.51 L, Hgb 10.4 L, Hct 35.4 L, MCV 100.9 H, MCH 29.7, MCHC 29.4 L, RDW 16.0, Plt Count 506 H D, MPV 8.9, Neut % (Auto) 93.8 H, Lymph % (Auto) 1.6 L, [place] % (Auto) 3.5, Eos % (Auto) 0.5, Baso % (Auto) 0.5, Neut # (Auto) 13.2 H, Lymph # (Auto) 0.2 L, [place] # (Auto) 0.5, Eos # (Auto) 0.1, Baso # (Auto) 0.1, Total Counted 100, Neutrophils % (Manual) 91 H, Lymphocytes % (Manual) 4 L, Atypical Lymphs % 3.0, Monocytes % (Manual) 2, Nucleated RBCs 1, Platelet Estimate Moderate increase, Hypochromasia 1+, Anisocytosis 1+, Macrocytosis 1+ 07/27/22 06:15: Sodium 134 L, Potassium 5.0, Chloride 94 L, Carbon Dioxide 30, Anion Ga
--- NOTE | 2022-07-27 09:59 | PC.NURSE ---
Patient was weaned from NRB to 50% Venti mask for approx 10 minutes. pt o2 sats then declined into the low to mid 80's and maintained. pt had to have NRB reapplied. Dr Cardona notified. 1000
--- NOTE | 2022-07-27 11:20 | DIET.NUTRFU ---
Patient continues to refuse meals, at 0% consumed. She and family have met with provider on plan of care and she does not wish to have any kind of feeding tube. Provider to addressing comfort measures, has had multiple conversions with family on level of care. Based on po intake since admit, she triggers for PCM with risk of weight loss and skin breakdown. Will continue to monitor overall condition and assist as needed.
--- NOTE | 2022-07-27 15:47 | PC.NURSE ---
RT again attempted to wean pt from NRB. pt placed on 50% venti, after 5-10 mins pt sats declined 86-88%. pt placed back on nrb per RT
[2022-07-27 18:07] LABS: Myoglobin, Urine 9 ng/mL (0-13)
--- NOTE | 2022-07-27 18:20 | P.EN_ITS ---
Advance care planning note: Active diagnosis: Septic shock, pneumonia, ESBL UTI, combined heart failure, acute on chronic respiratory failure, atrial fibrillation, JOHANNY The patient's active diagnoses are of sufficient risk that focused discussion on advanced care planning is indicated in order to allow the patient to thoughtfully consider personal goals of care; and, if situations arise that prevent the ability to personally give input, to ensure appropriate representation of their personal desires through documentation or informed surrogate decision makers. Discussion: Extensive discussion with daughter this afternoon about patient's DNR status, desire to not escalate care or proceed with invasive measures. Given patient's continued decline, discussed continuing with current course as patient does not seem to be responding to this course versus transitioning to hospice style care and de-escalating life support (vasopressors). Had a long discussion about patient's wishes that she is expressed and put in writing with her DNR status. Patient has mentioned many times over the past few days as well as few weeks that she does not want to hurt and wants to be allowed to . Daughter feels that if the patient is unable to do the things that bring her jose (quilting, being with friends) then she would not want to prolong life in the setting of critical illness. Daughter wants to honor patient's wishes to not escalate care and proceed with invasive measures such as ventilatory management, CPR, or other aggressive life prolonging measures. Patient's chance of meani ngful recovery exceptionally poor. Plan to move forward with de-escalation of care and cessation of vasopressors this afternoon. Persons present and participating in discussion: Patient's daughter Audra Discussion: De-escalate care and move forward with comfort measures. Stop vasopressors (life support). Continue supplemental oxygen. Morphine if patient appears in pain Time spent:38 Total time spent [id number] in education and discussion directly related to advance care planning: (specific minutes 15-30 or >45) Chivo Cardona MD 07/27/2022 18:24
--- NOTE | 2022-07-27 18:20 | EXP.ACUTE.PN ---
Subjective *Date: 07/27/22 *Time: 18:24 Interval history: Patient's condition declined overnight, not showing meaningful response on exam. No response to painful stimuli. Labored agonal breathing on 100% nonrebreather. Heart rate controlled on diltiazem drip between 50 and 70 bpm. MAP greater than 65. Urine output has decreased overnight: 400 cc total output yesterday, 100 cc so far today in the first 12-hour. Afebrile. Unable to give review of systems Medical Exam Vital signs and Labs for Last 24 Hours: Vital Signs Temp Pulse Pulse Resp BP Pulse Ox FiO2 07/27/22 16:00 69 07/27/22 16:00 64 16 95/41 L 100 07/27/22 12:00 77 07/27/22 14:50 64 07/27/22 14:50 69 07/27/22 14:50 100 100 07/27/22 14:00 67 18 97/56 L 100 07/27/22 12:00 77 16 109/38 L 100 07/27/22 08:00 70 07/27/22 10:45 70 07/27/22 10:45 69 07/27/22 10:00 64 18 89/38 L 96 100 07/27/22 08:00 60 18 101/40 L 95 100 07/27/22 07:35 61 99 100 07/27/22 06:00 77 14 100/44 L 100 100 07/27/22 06:03 64 07/27/22 06:03 67 07/27/22 05:00 73 07/27/22 04:00 80 07/27/22 04:25 89 L 07/27/22 04:00 97.5 F L 07/27/22 04:00 86 24 105/41 L 88 L 50 07/27/22 00:00 90 07/26/22 20:00 99 H 07/26/22 20:00 50 07/27/22 02:00 94 H 24 108/33 L 89 L 50 07/26/22 21:00 100 H 103/45 L 07/27/22 00:00 101 H 28 H 106/60 L 92 L 50 07/26/22 23:00 97 H 114/39 L 07/26/22 22:00 81 30 H 103/48 L 94 L 50 07/27/22 00:00 97.0 F L 07/26/22 20:00 100 H 34 H 107/48 L 93 L 50 07/26/22 20:00 97.2 F L 07/26/22 20:25 40 07/26/22 20:23 94 H 07/26/22 20:23 91 H 07/26/22 19:00 94 H 20 109/38 L 93 L 07/26/22 18:22 90 18 93/47 L 93 L Intake and Output 07/27/22 07/27/22 07/27/22 07:59 15:59 23:59 Intake Total 1704.865 / 2047.865 343 / 2047.865 Output Total 100 / 100 0 / 100 0 / 100 Balance 1604.865 / 1947.865 343 / 1947.865 0 / 1947.865 Intake: Intake, Oral Amount 0 / 0 Intake, Total IV Amount 1704.865 / 2047.865 343 / 2047.865 0.9 % Sodium Chloride 1,000 ml 1046 / 1126 80 / 1126 @ 100 mls/hr IV .Q10H [facility] Rx#: [id number] Norepinephrine Bitartrate 8 mg 457 / 457 In Dextrose 5 % in Water 250 ml @ 24 MCG/MIN 46.44 mls/hr IV . Q5H34M [facility] Rx#:[id number] dilTIAZem HCL 100 mg In 0.9 % 178 / 183 5 / 183 Sodium Chloride 100 ml @ 5 mls/ hr IV .Q20H [facility] Rx#:[id number] Output: Output, Urine Amount 100 / 100 0 / 100 0 / 100 Other: Number of Unmeasured Voids 0 0 0 Weight 81.193 kg 81.193 kg Patient Weight 07/27/22 23:59 Weight 81.193 kg Laboratory Results - last 24 hr 07/24/22 10:14: Urine Myoglobin 9 07/27/22 06:15: WBC 14.0 H D, RBC 3.51 L, Hgb 10.4 L, Hct 35.4 L, MCV 100.9 H, MCH 29.7, MCHC 29.4 L, RDW 16.0, Plt Count 506 H D, MPV 8.9, Neut % (Auto) 93.8 H, Lymph % (Auto) 1.6 L, Reagan % (Auto) 3.5, Eos % (Auto) 0.5, Baso % (Auto) 0.5, Neut # (Auto) 13.2 H, Lymph # (Auto) 0.2 L, Reagan # (Auto) 0.5, Eos # (Auto) 0.1, Baso # (Auto) 0.1, Total Counted 100, Neutrophils % (Manual) 91 H, Lymphocytes % (Manual) 4 L, Atypical Lymphs % 3.0, Monocytes % (Manual) 2, Nucleated RBCs 1, Platelet Estimate Moderate increase, Hypochromasia 1+, Anisocytosis 1+, Macrocytosis 1+ 07/27/22 06:15: Sodium 134 L, Potassium 5.0, Chloride 94 L, Carbon Dioxide 30, Anion Gap 15.0, BUN 40 H, Creatinine 1.80 H D, Estimated Creat Clear 34, Estimated GFR 27 L, Est GFR ( Amer) 33 L D, Glucose 182 H D, Calcium 7.9 L, Magnesium 1.6, Total Bilirubin 0.5, AST 40 H D, ALT 101 H, Alkaline Phosphatase 119, Total Protein 5.9 L, Albumin 3.0 L, Globulin 2.9, Albumin/Globulin Ratio 1.0 L I & O for Labs for Last 24 Hours: Intake & Output 07/24/22 07/25/22 07/26/22 07/27/22
--- NOTE | 2022-07-27 20:08 | PC.NURSE ---
Per Dr Cardona pt is to transition to comfort care. decrease pt levophed by half then dc drip 30min later 1815 drip decreased to levo at 12mcg 1845 drip dc
[2022-07-28] VITALS: BP 58/22; PULSE 53; PULSE 57; RESP 33; O2SAT 100
[2022-07-28 04:00] VITALS: PULSE 40
--- NOTE | 2022-07-28 04:55 | PC.NURSE ---
pt , daughter Audra at bedside, ROSE Tariq pronounced at 0450
--- NOTE | 2022-07-28 05:10 | EXP.DEATH.NO ---
Pronouncement Note Date and Time of Date of : 07/28/22 Time of : 04:55 PCOD Preliminary cause of : Respiratory failure with hypoxia Contributing Factors (1) Sepsis: (2) Urinary tract infection due to ESBL Klebsiella: (3) Atrial fibrillation with rapid ventricular response: (4) Acute systolic CHF (congestive heart failure), NYHA class 3: (5) JOHANNY (acute kidney injury): (6) Oliguria: (7) Anemia: (8) Chronic respiratory failure with hypoxia: (9) Hyperkalemia: (10) Elevated liver enzymes: (11) COPD (chronic obstructive pulmonary disease): (12) Diabetic ulcer of lower leg: (13) Cardiomyopathy: Additional Data Attending physician: Chivo Cardona MD
--- NOTE | 2022-07-28 05:12 | EXP.DEATH.DS ---
Discharge Sum: Prov Provider Primary care physician: Yuliya Vazquez Visit Care Team Role Provider Type Yuliya Vazquez Primary Care Provider Referring Cassy Wray MD Other Providers Consulting Physician Dawson Fishman MD Other Providers Staff Physician MIRACLE Skinner Other Providers Physician [employer]ion Essbase Developer Geri Muniz MD Other Providers Consulting Physician Tam Flanagan MD Other Providers Consulting Physician Adolfo Nguyen MD Other Providers Staff Physician Ghazal Mckoy APRN Other Providers Nurse Practitioner Diana Douglas APRN Other Providers Nurse Practitioner Chivo Cardona MD Admit Provider Staff Physician Attending Provider Consults: 07/21/22 21:39 Cardiology Consult [Consult to Cardiology] [CONS] Routine Consulting Provider: Cardiology Reason For Consult: tachycardia, chest pain Discharge Sum: Diag PCOD Cause of : Respiratory failure with hypoxia Contributing Factors (1) Sepsis: (2) Urinary tract infection due to ESBL Klebsiella: (3) Atrial fibrillation with rapid ventricular response: (4) Acute systolic CHF (congestive heart failure), NYHA class 3: (5) JOHANNY (acute kidney injury): (6) Oliguria: (7) Anemia: (8) Chronic respiratory failure with hypoxia: (9) Hyperkalemia: (10) Elevated liver enzymes: (11) COPD (chronic obstructive pulmonary disease): (12) Diabetic ulcer of lower leg: (13) Cardiomyopathy: Discharge Sum: Summary Date and Time Date of admission: 07/21/22 21:12 Date of : 07/28/22 Time of : 04:55 Hospital Course prior to Hospital Course Information: Ms. Manjarrez was a 76-year-old female with a past medical history of COPD, Chronic Respiratory Failure, Atrial Fibrillation, Hypertension. Summary Details: Ms. Manjarrez was a 76-year-old female transferred to [facility] from an outlying facility due to Acute on Chronic Hypoxic Respiratory Failure and Atrial Fibrillation with Rapid Ventricular Response. She was found to have a multi-drug resistant UTI. Despite aggressive treatment that patient continued to decline. Family came to bedside and decided on comfort measures only on 07/27/22. The patient passed peacefully with family at bedside the morning of 07/28/22. Additional Data Confirmation of as documented by pronouncing clinician: no pulse, no respirations, no heart sounds and pupils fixed and dilated Family: at bedside Additional persons at bedside: breast trimmer Attending/PCP notified?: No Attending physician: Chivo Cardona MD Was code activated?: No Autopsy requested?: No cloth examiner hand notified?: Yes Organ bank notified?: Yes Advance directives: Yes Hospice patient?: No
--- NOTE | 2022-07-28 05:30 | PC.NURSE ---
notified ALOK, ruled out by Monse Campbell case #[id number]
== END 2022-07-28 04:55 | disposition expired | DRG 286 ==
PROVIDERS: Internal Medicine; Nurse Practitioner Family; Admitting Provider Internal Medicine Adolescent Medicine; PCP Internal Medicine; Visit Provider Internal Medicine Adolescent Medicine
PROC: B2151ZZ Fluoroscopy of Left Heart using Low Osmolar Contrast (ICD-10-PCS; principal; 2022-07-22 11:45)
DX: A41.9 Sepsis, unspecified organism (principal); I50.21 Acute systolic (congestive) heart failure; J18.9 Pneumonia, unspecified organism; J96.21 Acute and chronic respiratory failure with hypoxia; R65.21 Severe sepsis with septic shock; J44.0 Chronic obstructive pulmonary disease with (acute) lower respiratory infection; N17.9 Acute kidney failure, unspecified; N39.0 Urinary tract infection, site not specified; I48.20 Chronic atrial fibrillation, unspecified; Z16.12 Extended spectrum beta lactamase (ESBL) resistance; L97.919 Non-pressure chronic ulcer of unspecified part of right lower leg with unspecified severity; I42.9 Cardiomyopathy, unspecified; J44.9 Chronic obstructive pulmonary disease, unspecified; Z79.01 Long term (current) use of anticoagulants; N18.9 Chronic kidney disease, unspecified; I50.82 Biventricular heart failure; Z99.81 Dependence on supplemental oxygen; I25.10 Atherosclerotic heart disease of native coronary artery without angina pectoris; E11.622 Type 2 diabetes mellitus with other skin ulcer; E78.5 Hyperlipidemia, unspecified; Z95.5 Presence of coronary angioplasty implant and graft; I27.20 Pulmonary hypertension, unspecified; E87.5 Hyperkalemia; Z66 Do not resuscitate; B96.20 Unspecified Escherichia coli [E. coli] as the cause of diseases classified elsewhere
CPT/HCPCS: 36569; 36410; 36415; 71045; 71250; 80048; 80053; 80061; 81001; 82550; 82810; 82962; 83010; 83036; 83615; 83735; 83874; 83880; 84443; 84484; 85007; 85014; 85018; 85025; 85044; 86850; 87086; 87088; 87186; 93005; 93306; 93308; 93460; 94640; 94760; 94761; 99152; 99153; C1725; C1751; C1769; C1894; C9803; J0282; J1644; J1956; J2185; J3475; J7060; P9016; Q9967; U0003; U0005